=== PATIENT | male | born 1970 | race Caucasian/White ===

== ENCOUNTER 2017-12-31 13:34 | Inpatient (IN) ==
[2017-12-31] MEDS ORDERED: Levofloxacin 500 MG/100 ML 500 MG/100 ML BAG IVPB ONE (14:00)
[2017-12-31] MEDS ORDERED: Ringers Solution, Lactated 1,000 ML IVC SCH (14:00)
--- NOTE | 2017-12-31 14:00 | Anesthesia Evaluation PreOp ---
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 History: Other (BIPOLAR) Other Medical History: Thyroid, Other (MORBID OBESITY) Anesthesia History: No Prior Anesthetic Complications, Past Anesthesia Alcohol Use: occasionally Drug use: none Medications and Allergies Levothyroxine [Synthroid] 25 mcg PO 0630 03/11/16 [History] [place] Carbonate 300 mg PO DAILY 03/11/16 [History] Losartan Potassium [Cozaar] 50 mg PO DAILY 03/11/16 [History] Metoprolol [Lopressor] 25 mg PO DAILY 03/11/16 [History] risperiDONE [Risperidone] 1 mg PO HS 03/11/16 [History] HYDROcodone/Acet 5/325 mg [[place] 5-325 mg] 1 tab PO Q4H PRN 3 Days #14 tab 12/28 [Rx] cloNIDine HCl [Clonidine HCl] 0.5 mg PO DAILY 12/28/17 [History] Aripiprazole [Abilify] 30 mg PO DAILY 12/31/17 [History] Aspirin 325 mg PO DAILY 12/31/17 [History] Oxycodone HCl/Acetaminophen [Percocet 5-325 mg Tablet] 1 each PO Q6H PRN [History] 3 Allergy/AdvReac Type Severity Reaction Status Date / Time Beef Containing Products Allergy Swelling Verified 12/28/17 20:22 of Lip/Tongue/Throat Penicillins [PCN] Allergy Dizziness Verified 03/11/16 12:00 - Meds/Allergy Pre-op Review Medications Reviewed: Yes Allergies Reviewed: Yes Beta Blockers on Current Med List: Yes Anesthesia Exam O2 Sat Height 1.83 m Weight 176.901 kg BMI 53 Vital Signs Temp Pulse Resp BP Pulse Ox 100.7 F 112 18 101/63 93 12/31/17 14:18 12/31/17 13:59 12/31/17 13:59 12/31/17 13:59 12/31/17 13:59 NPO (# of Hours): 8 - HEENT Mallampati: II Teeth: Poor dentition (MUTIPLE CARIES, BROKEN #8) Oral Opening: Greater than 3 - Cardiac Rhythm: Regular - Pulmonary Breath Sounds: bilateral Clear Respiratory Effort: Symmetrical Anesthesia Assess/Plan ASA Score: 3 Modified [place] Scale for Level of Consciousness: Cooperative, oriented, and tranquil Anesthetic Plan: General Monitoring Plan: Standard Monitors Anes Supervising Prov Stmt: Penumbra LIST NOT UPDATED THIS VISIT PATIENT'S CHART AND CURRENT MEDICATIONS REVIEWED The patient reports a fever of 102 last night. He denies any cough, productive sputum, or any other skin infections. He does report that his urine is dark, padmini colored. He is febrile and tachycardic today. This is probably UTI with sepsis, and the patient might have to be admitted post operatively for iv antibiotics. Patient informed and consented. Risks, benefits, and alternatives discussed. Patient wishes to proceed.
[2017-12-31 15:50] LABS: Basophils % 0.2 %; Hematocrit 41.9 % (37.5-50.1); Hemoglobin 14.6 g/dL (12.9-16.9); Immature Granulocytes % 0.5 % (0-4); Lymphocytes # 0.3 K/mcL (0.6-4.6); Lymphocytes % 2.8 %; Mean Corpuscular HGB Conc 34.8 g/dL (31.6-35.5); Mean Corpuscular Volume 86.2 fL (83.0-100.0); Mean Platelet Volume 10.3 fL (9.4-12.4); Monocytes # 0.9 K/mcL (0.0-1.3); Neutrophils # 9.7 K/mcL (1.6-8.9); Platelet Count 173 K/mcL (140-400); Red Blood Count 4.86 M/mcL (4.19-5.50); Red Cell Distribution Width 14.1 % (11.5-14.5); Segmented Neutrophils % 88.5 %
--- NOTE | 2017-12-31 15:53 | History & Physical Report ---
Date of Encounter: 12/31/17 Time of Encounter: 15:52 24 Hour HP Update - Instructions Instructions: If the History and Physical is less than 30 days old and was completed prior to A.M. admission and or procedure and has NOT been updated on calendar day of procedure please complete this update prior to performing procedure. - Update Patient reports changes in Medical Condition: Yes Changes in examination, assessment, or condition: Yes Changes in Medication: No Preop tests/diagnostics Reviewed: Yes Surgery Remains Indicated: Yes Consent for Planned Operative Procedure(s) Verified: Yes Additions to current History and Physical: Patient has a fever. We will admit afterwards and only place a left stent. - Pre-Operative Checklist Preoperative Checklist Indicated: Yes Prophylactic Antibiotic Ordered: Yes Home Medications Include Beta Yocasta: Yes Is VTE Prophylaxis Indicated?: Yes
[2017-12-31] MEDS ORDERED: Ondansetron 4 MG/2 ML VIAL ONE (15:59)
[2017-12-31] MEDS ORDERED: Dexamethasone 4 MG/ML VIAL ONE (15:59)
[2017-12-31] MEDS ORDERED: *HR* FentaNYL (PF) 100 MCG/2 ML VIAL ONE (15:59)
[2017-12-31] MEDS ORDERED: *HR* Propofol 200 MG/20 ML VIAL IVP ONE (15:59)
[2017-12-31] MEDS ORDERED: Lidocaine -MPF 2% 2 ML VIAL ONE (15:59)
[2017-12-31] MEDS ORDERED: Isovue-300 50 ML VIAL IVP ONE (16:36)
[2017-12-31] MEDS ORDERED: *HR* Meperidine 25 MG/ML SYRINGE IVP PRN (16:52)
[2017-12-31] MEDS ORDERED: *HR* OxyCODONE Immed Rel 5 MG TABLET PO PRN (16:52)
[2017-12-31] MEDS ORDERED: *HR* HYDROmorphone (PF) 1 MG/ML SYRINGE IVP PRN (16:52)
[2017-12-31] MEDS ORDERED: *HR* Promethazine 25 MG/ML VIAL IVP PRN (16:52)
--- NOTE | 2017-12-31 17:01 | Operative Note ---
Date of procedure: 12/31/17 Pre-op diagnosis: Left ureteral stone Post-op diagnosis: same Procedure: Cystoscopy, left ureteral stent placement. Implants: 6-[place] Citizen by 26 cm double-J stent. Complications: None Anesthesia: YOAN Surgeon: Behzad Feng Was there an studio assistant present: No Estimated blood loss (cc): 1 Specimen: left renal aspirate for culture Condition: stable Disposition: PACU Procedure in Detail: Indications: Mr. Moreno is a 47-year-old male who has a history of nephrolithiasis. He had a CT which showed a left proximal ureteral stone. He has concern for fever and possible infection. He elected to undergo a cystoscopy and left ureteral stent placement. He was aware of the risks of the procedure including but not limited to bleeding, infection, injury to other structures, need for further procedures, stent irritation, need for nephrostomy tube, need for open repair, risks otherwise unforeseen, and the risk of anesthesia. He is willing to proceed. Procedure in Detail: After informed consent was obtained the patient was brought back to the operating room and placed in supine position. A time out was performed. General anesthesia was administered and an LMA was placed. He was then placed in the lithotomy position. He was prepped and draped in the usual sterile fashion. Cystoscopy was performed. The anterior urethra was normal. There was no evidence of bladder tumors. The ureteral orifices were in the normal orthotopic position. There was no duplication of the ureteral orifices. The Sensor wire was placed in the left ureteral orifice. The wire was then brought up into the kidney under fluoroscopic guidance. An open-ended catheter was placed over the wire into the kidney. An aspirate of urine was obtained from the kidney. It did not look grossly purulent. The wire was replaced. The open-ended catheter was removed. A 6 [place] Citizen by 26cm JJ stent was then placed. The dangle strings were removed. A Man catheter was then placed. The patient was then awakened from general anesthesia and brought to recovery room in good condition. All sponge, needle, and instrument counts were correct.
[2017-12-31] MEDS ORDERED: *HR* Dextrose 50 % in Water (Syg) 50 ML SYRINGE IVP PRN (18:16)
[2017-12-31] MEDS ORDERED: OXYCODONE Oral CONC 10 MG/0.5 ML ORAL.SYG SL PRN (18:16)
[2017-12-31] MEDS ORDERED: Naloxone 0.4 MG/ML INJ IVP PRN (18:16)
[2017-12-31] MEDS ORDERED: Dextrose Gel 15 GM/37.5 ML TUBE PO PRN ×2 (18:16)
[2017-12-31] MEDS ORDERED: D5% in Water 1,000 ML IVC PRN (18:16)
[2017-12-31] MEDS: risperiDONE 1 MG TABLET PO SCH (20:54)
[2018-01-01] MEDS: 0.9 % Sodium Chloride 1,000 ML IVC SCH ×4 (01:30→22:25)
[2018-01-01 04:25] LABS: Basophils % 0.1 %; Hematocrit 40.1 % (37.5-50.1); Hemoglobin 13.6 g/dL (12.9-16.9); Immature Granulocytes % 0.4 % (0-4); Lymphocytes # 0.4 K/mcL (0.6-4.6); Lymphocytes % 4.2 %; Mean Corpuscular HGB Conc 33.9 g/dL (31.6-35.5); Mean Corpuscular Hemoglobin 28.9 pg (28.0-33.3); Mean Corpuscular Volume 85.3 fL (83.0-100.0); Monocytes # 0.4 K/mcL (0.0-1.3); Monocytes % 5.1 %; Neutrophils # 7.5 K/mcL (1.6-8.9); Platelet Count 169 K/mcL (140-400); Red Cell Distribution Width 14.2 % (11.5-14.5); Segmented Neutrophils % 90.2 %
[2018-01-01 04:42] LABS: Calcium 9.3 mg/dL (8.6-10.3); Potassium 4.5 mEq/L (3.5-5.1)
[2018-01-01] MEDS: Levothyroxine 25 MCG TABLET PO SCH (05:11)
[2018-01-01] MEDS: Levofloxacin 500 MG/100 ML 500 MG/100 ML BAG IVPB SCH (08:55)
[2018-01-01] MEDS: Aspirin 325 MG TABLET PO SCH (08:55)
[2018-01-01] MEDS: ARIPiprazole 10 MG TABLET PO SCH (08:55)
[2018-01-01] MEDS: Lithium Carbonate 300 MG CAPSULE PO SCH (08:55)
--- NOTE | 2018-01-01 12:40 | Urology Progress Note ---
Date of Encounter: 01/01/18 Time of Encounter: 12:38 - Assessment and Plan (1) Ureterolithiasis Current Visit: No Status: Acute Assessment and plan: Patient is a 47-year-old male who presents the history of a proximal left ureteral stone and concern for urinary tract infection. Patient is one day status post cystoscopy, left ureteral stent placement and doing well. Vital signs are stable and afebrile. White blood cell count is reassuring. Patient' s nurse requested sliding scale order for insulin in order was given. Patient is aware that he will require an additional procedure for stone extraction. Patient will present as an outpatient in our office in order to schedule left stone extraction. Progress Note Subjective: no new complaints, feels better Narrative: POD #1. Patient seen and examined sitting upright in bed in no apparent distress. Patient tolerating normal diet. Voiding without difficulty. Pain is well-controlled. Patient denies fever, chills, flank pain, diaphoresis, gross hematuria. Objective Initial Vital Signs Temp Pulse Resp BP Pulse Ox 99.6 F 112 18 101/63 93 12/31/17 13:59 12/31/17 13:59 12/31/17 13:59 12/31/17 13:59 12/31/17 13:59 - General physical appearance Present: well developed, no distress, no pain, obese - Respiratory Present: normal expansion, normal respiratory effort - Abdomen Present: soft, non tender - Integumentary Present: no rash, no abnormal pigmentation - Musculoskeletal Present: normal posture - Psychiatric Present: oriented to time, oriented to person, oriented to place, speech is normal, memory intact - Labs 01/01/18 04:07 01/01/18 04:07 Diabetes panel 01/01/18 Range/Units 04:07 Sodium 136 (136-145) mEq/L Potassium 4.5 (3.5-5.1) mEq/L Chloride 104 (98-107) mEq/L Carbon Dioxide 24 (23-29) mEq/L BUN 22 H (6-20) mg/dL Creatinine 1.67 H (0.70-1.30) mg/dL Glucose 257 H (70-105) mg/dL Calcium 9.3 (8.6-10.3) mg/dL Calcium panel 01/01/18 Range/Units 04:07 Calcium 9.3 (8.6-10.3) mg/dL Pituitary panel 01/01/18 Range/Units 04:07 Sodium 136 (136-145) mEq/L Potassium 4.5 (3.5-5.1) mEq/L Chloride 104 (98-107) mEq/L Carbon Dioxide 24 (23-29) mEq/L BUN 22 H (6-20) mg/dL Creatinine 1.67 H (0.70-1.30) mg/dL Glucose 257 H (70-105) mg/dL Calcium 9.3 (8.6-10.3) mg/dL Adrenal panel 01/01/18 Range/Units 04:07 Sodium 136 (136-145) mEq/L Potassium 4.5 (3.5-5.1) mEq/L Chloride 104 (98-107) mEq/L Carbon Dioxide 24 (23-29) mEq/L BUN 22 H (6-20) mg/dL Creatinine 1.67 H (0.70-1.30) mg/dL Glucose 257 H (70-105) mg/dL Calcium 9.3 (8.6-10.3) mg/dL Consult Discharge Plan - Plan Referrals: Maricruz Prieto CNP [Primary Care Provider] - Behzad Feng MD [Partnered Physician] -
[2018-01-01] MEDS: Insulin LISPRO 300 UNITS/3 ML VIAL SQ SCH ×3 (12:47→21:47)
[2018-01-01] MEDS: Ondansetron 4 MG/2 ML VIAL IVP PRN (18:05)
[2018-01-01] MEDS: *HR* OxyCODONE Immed Rel 5 MG TABLET PO PRN (18:11)
[2018-01-01] MEDS: Acetaminophen 325 MG TABLET PO PRN (20:21)
[2018-01-01] MEDS ORDERED: Ibuprofen 600 MG TABLET PO ONE (21:14)
[2018-01-01] MEDS ORDERED: 0.9 % Sodium Chloride 1,000 ML IVC ONE (21:15)
[2018-01-01] MEDS: *HR* Heparin 5,000 UNIT/ML VIAL SQ SCH (21:29)
[2018-01-01] MEDS: risperiDONE 1 MG TABLET PO SCH (21:48)
[2018-01-02] MEDS: *HR* Heparin 5,000 UNIT/ML VIAL SQ SCH ×2 (05:49→19:00)
[2018-01-02] MEDS: 0.9 % Sodium Chloride 1,000 ML IVC SCH ×2 (05:49→14:53)
[2018-01-02] MEDS: Levothyroxine 25 MCG TABLET PO SCH (08:05)
[2018-01-02] MEDS: ARIPiprazole 10 MG TABLET PO SCH (08:06)
[2018-01-02] MEDS: Lithium Carbonate 300 MG CAPSULE PO SCH (08:07)
[2018-01-02] MEDS: Aspirin 325 MG TABLET PO SCH (08:09)
[2018-01-02] MEDS: Acetaminophen 325 MG TABLET PO PRN ×3 (08:09→20:07)
[2018-01-02] MEDS: Ondansetron 4 MG/2 ML VIAL IVP PRN ×2 (08:10→15:47)
[2018-01-02] MEDS: Insulin LISPRO 300 UNITS/3 ML VIAL SQ SCH ×4 (08:11→21:38)
[2018-01-02] MEDS: Levofloxacin 500 MG/100 ML 500 MG/100 ML BAG IVPB SCH (08:12)
--- NOTE | 2018-01-02 09:46 | Urology Progress Note ---
Date of Encounter: 01/02/18 Time of Encounter: 09:44 - Assessment and Plan (1) UTI (urinary tract infection) Current Visit: Yes Status: Acute Assessment and plan: 47-year-old man with urinary tract infection and left ureteral stone. He is postop day #2 status post cystoscopy and left ureteral stent placement. I called the lab today. We will set up urine culture on him. He does have an allergy to penicillins. He is currently on levofloxacin. We will repeat labs today. Continue inpatient stay. Awaiting the results of his urine culture. Qualifiers: Urinary tract infection type: acute pyelonephritis Qualified Code(s): N10 - Acute pyelonephritis (2) Ureterolithiasis Current Visit: No Status: Acute Assessment and plan: He has a history of uric acid stones. I placed a left ureteral stent. Continue IV antibiotics for now. Awaiting urine culture results. I discussed with Dr. Velez. He will need to consider ureteroscopic stone extraction at a later date. Progress Note Narrative: 47-year-old man status post cystoscopy and left ureteral stent placement, postoperative day #2. He had a fever yesterday. This responded with IV fluids. He is still not feeling well. I called the lab today. His urine culture was not set up at the time of the surgery. They do have the sample and will perform a Gram stain and culture on it today. He is tolerating diet. He says he is voiding well. Objective Initial Vital Signs Temp Pulse Resp BP Pulse Ox 99.6 F 112 18 101/63 93 12/31/17 13:59 12/31/17 13:59 12/31/17 13:59 12/31/17 13:59 12/31/17 13:59 - General physical appearance Present: well developed, well nourished, no distress - Respiratory Absent: normal respiratory effort - Abdomen Present: soft - Labs 01/01/18 04:07 01/01/18 04:07 Consult Discharge Plan - Plan Referrals: Maricruz Prieto CNP [Primary Care Provider] - Behzad Feng MD [Partnered Physician] -
[2018-01-02] MEDS ORDERED: Ibuprofen 600 MG TABLET PO PRN (10:06)
[2018-01-02 10:22] LABS: Hemoglobin 13.2 g/dL (12.9-16.9); Mean Corpuscular HGB Conc 34.7 g/dL (31.6-35.5); Mean Corpuscular Volume 86.4 fL (83.0-100.0); Mean Platelet Volume 11.3 fL (9.4-12.4); Platelet Count 165 K/mcL (140-400); Red Cell Distribution Width 14.4 % (11.5-14.5)
[2018-01-02 10:40] LABS: BUN/Creatinine Ratio 15 (6-26); Blood Urea Nitrogen 19 mg/dL (6-20); Calcium 8.3 mg/dL (8.6-10.3); Carbon Dioxide 23 mEq/L (23-29); Chloride 104 mEq/L (98-107); Glucose 197 mg/dL (70-105); Osmolality,Calculated 288 (280-300); Potassium 3.9 mEq/L (3.5-5.1); Sodium 135 mEq/L (136-145); eGFR For Non-African Americans > 60 (> 60)
[2018-01-02] MEDS: *HR* OxyCODONE Immed Rel 5 MG TABLET PO PRN (15:46)
[2018-01-02] MEDS: risperiDONE 1 MG TABLET PO SCH (20:07)
[2018-01-03] MEDS: 0.9 % Sodium Chloride 1,000 ML IVC SCH ×3 (04:17→17:24)
[2018-01-03] MEDS: *HR* Heparin 5,000 UNIT/ML VIAL SQ SCH ×2 (06:16→17:05)
[2018-01-03] MEDS: Levothyroxine 25 MCG TABLET PO SCH (06:20)
[2018-01-03] MEDS: Levofloxacin 500 MG/100 ML 500 MG/100 ML BAG IVPB SCH (07:54)
[2018-01-03] MEDS: ARIPiprazole 10 MG TABLET PO SCH (07:56)
[2018-01-03] MEDS: Aspirin 325 MG TABLET PO SCH (07:56)
[2018-01-03] MEDS: Lithium Carbonate 300 MG CAPSULE PO SCH (07:56)
[2018-01-03] MEDS: Insulin LISPRO 300 UNITS/3 ML VIAL SQ SCH ×4 (07:58→20:12)
--- NOTE | 2018-01-03 09:42 | Urology Progress Note ---
Date of Encounter: 01/03/18 Time of Encounter: 09:40 - Assessment and Plan (1) UTI (urinary tract infection) Current Visit: Yes Status: Acute Assessment and plan: 47-year-old man status post left ureteral stent placement with a UTI. I have requested sensitivities on the group B strep given his penicillin allergy. Continue levofloxacin and vancomycin for now. Continue inpatient stay. Maximum temperature was 100.5 degrees within the last 24 hours. Qualifiers: Urinary tract infection type: acute pyelonephritis Qualified Code(s): N10 - Acute pyelonephritis (2) Ureterolithiasis Current Visit: No Status: Acute Progress Note Narrative: 47-year-old man status post cystoscopy and left ureteral stent placement, postoperative day #3. We started vancomycin yesterday. He feels that this has improved his fevers. Urine culture is growing out Streptococcus. He does have a significant penicillin allergy. I will request sensitivities on the Streptococcus. Objective Initial Vital Signs Temp Pulse Resp BP Pulse Ox 99.6 F 112 18 101/63 93 12/31/17 13:59 12/31/17 13:59 12/31/17 13:59 12/31/17 13:59 12/31/17 13:59 - General physical appearance Present: well developed, well nourished, no distress - Respiratory Present: normal respiratory effort - Labs 01/02/18 10:12 01/02/18 10:12 Diabetes panel 01/02/18 Range/Units 10:12 Sodium 135 L (136-145) mEq/L Potassium 3.9 (3.5-5.1) mEq/L Chloride 104 (98-107) mEq/L Carbon Dioxide 23 (23-29) mEq/L BUN 19 (6-20) mg/dL Creatinine 1.27 (0.70-1.30) mg/dL Glucose 197 H (70-105) mg/dL Calcium 8.3 L (8.6-10.3) mg/dL Calcium panel 01/02/18 Range/Units 10:12 Calcium 8.3 L (8.6-10.3) mg/dL Pituitary panel 01/02/18 Range/Units 10:12 Sodium 135 L (136-145) mEq/L Potassium 3.9 (3.5-5.1) mEq/L Chloride 104 (98-107) mEq/L Carbon Dioxide 23 (23-29) mEq/L BUN 19 (6-20) mg/dL Creatinine 1.27 (0.70-1.30) mg/dL Glucose 197 H (70-105) mg/dL Calcium 8.3 L (8.6-10.3) mg/dL Adrenal panel 01/02/18 Range/Units 10:12 Sodium 135 L (136-145) mEq/L Potassium 3.9 (3.5-5.1) mEq/L Chloride 104 (98-107) mEq/L Carbon Dioxide 23 (23-29) mEq/L BUN 19 (6-20) mg/dL Creatinine 1.27 (0.70-1.30) mg/dL Glucose 197 H (70-105) mg/dL Calcium 8.3 L (8.6-10.3) mg/dL Consult Discharge Plan - Plan Referrals: Maricruz Prieto CNP [Primary Care Provider] - Behzad Feng MD [Partnered Physician] -
[2018-01-03 12:29] LABS: Vancomycin,Trough 4 mcg/mL (5-10)
[2018-01-03] MEDS ORDERED: Vancomycin 1 EACH in 0.9 % Sodium Chloride 250 ML IVPB SCH (13:00)
[2018-01-03 13:10] LABS: BUN/Creatinine Ratio 13 (6-26); Blood Urea Nitrogen 14 mg/dL (6-20); eGFR For Non-African Americans > 60 (> 60)
[2018-01-03] MEDS ORDERED: Aminoglycoside Consult 1 EACH MC ONE (14:03)
[2018-01-03] MEDS: risperiDONE 1 MG TABLET PO SCH (20:13)
[2018-01-04] MEDS: 0.9 % Sodium Chloride 1,000 ML IVC SCH (02:14)
[2018-01-04] MEDS: *HR* Heparin 5,000 UNIT/ML VIAL SQ SCH (05:40)
[2018-01-04] MEDS: Levothyroxine 25 MCG TABLET PO SCH (07:01)
[2018-01-04 07:43] VITALS: BP 146/84
--- NOTE | 2018-01-04 08:07 | Urology Progress Note ---
Date of Encounter: 01/04/18 Time of Encounter: 08:04 - Assessment and Plan (1) Ureterolithiasis Current Visit: No Status: Acute Assessment and plan: Patient is a 47 year old male 4 days status post cystoscopy, left ureteral stent placement. Vital signs are stable and afebrile. Discussed outpatient antibiotic therapy and urology follow up. Will send home with Bactrim DS twice daily. Progress Note Subjective: no new complaints, feels better, tolerating a regular diet, afebrile Narrative: POD #4. Patient seen and examined sitting upright in chair in no apparent distress. Tolerating normal diet. Voiding without difficulty. Denies fever, chills, nausea, vomiting, flank pain. Objective Initial Vital Signs Temp Pulse Resp BP Pulse Ox 99.6 F 112 18 101/63 93 12/31/17 13:59 12/31/17 13:59 12/31/17 13:59 12/31/17 13:59 12/31/17 13:59 - General physical appearance Present: well developed, no distress, no pain, obese - Respiratory Present: normal expansion, normal respiratory effort - Abdomen Present: soft, non tender - Integumentary Present: no rash, no abnormal pigmentation - Musculoskeletal Present: normal posture - Psychiatric Present: oriented to time, oriented to person, oriented to place, speech is normal, memory intact - Labs 01/02/18 10:12 01/03/18 12:01 Diabetes panel 01/03/18 Range/Units 12:01 BUN 14 (6-20) mg/dL Creatinine 1.05 (0.70-1.30) mg/dL Pituitary panel 01/03/18 Range/Units 12:01 BUN 14 (6-20) mg/dL Creatinine 1.05 (0.70-1.30) mg/dL Adrenal panel 01/03/18 Range/Units 12:01 BUN 14 (6-20) mg/dL Creatinine 1.05 (0.70-1.30) mg/dL Consult Discharge Plan - Plan Referrals: Maricruz Prieto CNP [Primary Care Provider] - Bhezad Feng MD [Partnered Physician] -
[2018-01-04] MEDS: ARIPiprazole 10 MG TABLET PO SCH (08:40)
[2018-01-04] MEDS: Lithium Carbonate 300 MG CAPSULE PO SCH (08:41)
[2018-01-04] MEDS: Insulin LISPRO 300 UNITS/3 ML VIAL SQ SCH ×2 (08:41→12:02)
[2018-01-04] MEDS: Aspirin 325 MG TABLET PO SCH (08:41)
[2018-01-04] MEDS ORDERED: levoFLOXacin 500 MG TABLET PO SCH (09:00)
--- NOTE | 2018-01-04 09:24 | Discharge Summary ---
Date of Encounter: 01/04/18 Time of Encounter: 09:25 - Discharge Diagnosis (1) Ureterolithiasis Priority: Primary Status: Acute - Hospital Course Hospital course: Mr. Moreno is a 47 year old male history who presented with a left proximal ureteral stone. Patient was concerning for urinary tract infection due to recurrent fever. On 12/31/2017, the patient was taken to the operating room where he underwent a cystoscopy and left ureteral stent placement. There were no operative complications, and the patient tolerated the procedure well. His postoperative course was remarkable for febrile illness as his MAXIMUM TEMPERATURE was 102.8 on postoperative day 1. Urine culture was positive for group B strep. Patient was placed on IV Levaquin during his hospital stay. Due to the patient's allergy to penicillin, he was placed on oral Bactrim DS twice daily. On postoperative day 4, the patient's vital signs have remained stable and afebrile for greater than 24 hours, and he was dismissed in satisfactory condition. Postoperative activities, restrictions and follow-up were all discussed with the patient. The patient reports he is scheduled for an oral surgery on 01/07/2018 at [facility]. He was instructed to notify his oral surgeon of this recent admission and infection in order to reschedule as needed. Time spent discussing smoking cessation with patient: 3 to 10 minutes - Time Spent with Patient Total time spent providing and/or coordinating discharge services: Less than 30 minutes Procedures and tests throughout hospitalization: Cystoscopy, left ureteral stent placement Labs on day of discharge: Labs from last 24 hours 01/03/18 01/03/18 12:01 11:27 BUN 14 Creatinine 1.05 Est GFR ( Amer) > 60 Est GFR (Non-Af Amer) > 60 BUN/Creatinine Ratio 13 POC Glucose 148 H Vancomycin Trough 4 L - Impressions ITS Impressions Fluoroscopy 12/31/17 00:00 IMPRESSION: Intraprocedural fluoroscopic spot images as above. See separate procedure report for more information. D/ / Oscar James MD / Oscar James MD Interpreting Provider: Oscar James MD X-Ray 12/31/17 00:00 IMPRESSION: Intraprocedural fluoroscopic spot images as above. See separate procedure report for more information. D/ / Oscar James MD / Oscar James MD Interpreting Provider: Oscar James MD - Discharge Medications Prescriptions: HYDROcodone/Acet 5/325 mg [[place] 5-325 mg] 1 tab PO Q6H PRN 3 Days #10 tab PRN Reason: Moderate Pain Sulfamethoxazole/Trimeth DS [Bactrim DS] 1 each PO BID #20 tablet Home Medications: Levothyroxine [Synthroid] 25 mcg PO 0630 03/11/16 [History] [place] Carbonate 300 mg PO DAILY 03/11/16 [History] Losartan Potassium [Cozaar] 50 mg PO DAILY 03/11/16 [History] Metoprolol [Lopressor] 25 mg PO DAILY 03/11/16 [History] risperiDONE [Risperidone] 1 mg PO HS 03/11/16 [History] HYDROcodone/Acet 5/325 mg [[place] 5-325 mg] 1 tab PO Q4H PRN 3 Days #14 tab 12/28 [Rx] Aripiprazole [Abilify] 30 mg PO DAILY 12/31/17 [History] Aspirin 325 mg PO DAILY 12/31/17 [History] Potassium Citrate [Urocit-K] 2 tab PO BID 01/01/18 [History] cloNIDine HCl [CloNIDine HCl] 0.1 mg PO BID 01/01/18 [History] HYDROcodone/Acet 5/325 mg [[place] 5-325 mg] 1 tab PO Q6H PRN 3 Days #10 tab 01/04 [Rx] Sulfamethoxazole/Trimeth DS [Bactrim DS] 1 each PO BID #20 tablet 01/04/18 [Rx] Allergies/Adverse Reactions: 3 Allergy/AdvReac Type Severity Reaction Status Date / Time Beef Containing Products Allergy Swelling Verified 12/28/17 20:22 of Lip/Tongue/Throat Penicillins [PCN] Allergy Dizziness Verified 03/11/16 12:00 Date of admission: 12/31/17 18:14 Primary care physician: Maricruz Prieto CNP Discharging clinician: Trinity Wall Anticipated date of discharge: 01/04/18 Exam Initial Vital Signs Temp Pulse Resp BP Pulse Ox 99.6 F 112 18 101/63 93 12/31/17 13:59 12/31/17 13:59 12/31/17 13:59 12/31/17 13:59 12/31/17 13:59 - General physical appearance Present: well developed, no distress, no pain - Eyes Present: PERRL, normal ocular movement - ENT Present: normal nares, no hearing loss, no congestion - Neck Present: no masses, trachea midline - Respiratory Present: normal respiratory effort - Cardiovascular Cardiovascular exam IM: RRR - Abdomen Abdomen: Present: soft, non tender - Integumentary Present: no rash, no abnormal pigmentation - Neurologic Present: normal coordination - Musculoskeletal Present: other (normal posture ) - Patient Status Disposition: Home, Self-Care Condition: Good Functional capacity at discharge: independent ambulation Overall status at discharge: patient is progressing back to baseline - Discharge Instructions Follow Up With: Maricruz Prieto CNP [Primary Care Provider] - Reece Velez MD [Partnered Physician] - Additional Instructions: Ok to shower. Ok to drive as long as you are no longer taking pain medication. May expect blood in the urine and irritating voiding symptoms. Call if fever greater than 101 degrees. May progress back to normal activity. Please follow-up with Dr. Velez as discussed to schedule stent removal and stone extraction. - Diet and Activity Activity: increase activity as tolerated Diet: advance to your usual diet
== END 2018-01-04 14:04 | disposition home or self-care (01) | DRG 465 ==
LOC: SAMDAY 13:34 → 3ANU 18:13
PROVIDERS: ADMIT Urology; ATTEND Urology

== ENCOUNTER 2018-01-12 20:50 | Inpatient (IN) ==
[2018-01-12] MEDS ORDERED: Naloxone 0.4 MG/ML INJ IVP PRN (22:14)
[2018-01-12] MEDS: 0.9 % Sodium Chloride 1,000 ML IVC SCH (22:50)
[2018-01-12 23:19] LABS: Basophils % 0.3 %; Eosinophils # 0.1 K/mcL (0.0-0.6); Eosinophils % 0.5 %; Hematocrit 38.7 % (37.5-50.1); Hemoglobin 13.4 g/dL (12.9-16.9); Immature Granulocytes % 0.8 % (0-4); Lymphocytes # 0.2 K/mcL (0.6-4.6); Lymphocytes % 2.5 %; Mean Corpuscular HGB Conc 34.6 g/dL (31.6-35.5); Mean Corpuscular Hemoglobin 29.1 pg (28.0-33.3); Mean Corpuscular Volume 83.9 fL (83.0-100.0); Mean Platelet Volume 10.4 fL (9.4-12.4); Monocytes # 0.5 K/mcL (0.0-1.3); Monocytes % 5.8 %; Neutrophils # 8.4 K/mcL (1.6-8.9); Platelet Count 180 K/mcL (140-400); Red Blood Count 4.61 M/mcL (4.19-5.50); Red Cell Distribution Width 13.9 % (11.5-14.5); Segmented Neutrophils % 90.1 %
[2018-01-12 23:38] LABS: Alanine Aminotransferase 53 Units/L (7-52); Albumin 3.5 g/dL (3.5-5.7); Albumin/Globulin Ratio 1.2 (1.1-2.2); Alkaline Phosphatase 79 Units/L (34-104); Aspartate Amino Transferase 42 Units/L (13-39); BUN/Creatinine Ratio 12 (6-26); Bilirubin,Total 1.4 mg/dL (0.3-1.0); Blood Urea Nitrogen 18 mg/dL (6-20); Calcium 8.5 mg/dL (8.6-10.3); Carbon Dioxide 19 mEq/L (23-29); Chloride 103 mEq/L (98-107); Globulin 2.9 g/dL (2.4-3.5); Glucose 171 mg/dL (70-105); Osmolality,Calculated 282 (280-300); Sodium 133 mEq/L (136-145); Total Protein 6.4 g/dL (6.4-8.9); eGFR For Non-African Americans 50 (> 60)
--- NOTE | 2018-01-12 23:44 | Internal Med History&Physical ---
Date of Encounter: 01/13/18 Time of Encounter: 23:41 Internal Medicine - H&P: HPI Chief complaint: Fever/Flank Pain History of present illness: Mr. Moreno is a 47 year old male with past medical history of hypertension, depression, hypothyroidism, and uric acid nephrolithiasis who had recently undergone cystoscopy with left ureteral stent placement on 12/31/2017 in the setting of a previously identified 8 mm left ureteral stone on CT scan on 2017. His postoperative course was remarkable for febrile illness with a temperature of 102.8. Urine culture were positive for group B strep. Due to the patient's allergy to penicillin, he was placed on oral Bactrim DS twice daily and was discharged on 01/04/18. Patient reports the plan is to follow-up with urology for possible second procedure on January 19. Patient states he was doing fine until about last weekend when he began having left flank pain associated with nausea and vomiting. He states that Thursday was the last time he was able to eat anything. He also reports subjective fever and chills and was found to have a temperature of 101.2 documented at [place] when he came in this evening. He was also found to be tachycardic with a heart rate in the 130s to 140s and his laboratory workup was significant for, hyponatremia with a sodium of 128, and mild BIRD (1.69). Lactic acid was normal. CT scan was not obtained as their scanner was down. Patient was subsequently to transferred to [place] after aggressive fluid recent port having received 4 L of normal saline. His tachycardia did improve. Patient was started on levofloxacin based on previous sensitivities. A trial of vancomycin was started as well but patient developed redness at the site of infusion. Past Med Surg Social Fam HX - Past Medical History Medical history: hypertension, kidney stones, thyroid disease, other Additional medical history: bipolar, anxiety depression Psychiatric history: anxiety, bipolar, depression - Past Surgical History Additional surgical history: PC&L, LITHOTRIPSY. renal stent - Social History Smoking Status: Former smoker Smokeless Tobacco Status: No Alcohol use: rarely Drug use: none Internal Medicine - H&P: Meds Levothyroxine [Synthroid] 25 mcg PO 0630 03/11/16 [History] [place] Carbonate 300 mg PO DAILY 03/11/16 [History] Losartan Potassium [Cozaar] 50 mg PO DAILY 03/11/16 [History] Metoprolol [Lopressor] 25 mg PO DAILY 03/11/16 [History] risperiDONE [Risperidone] 1 mg PO HS 03/11/16 [History] Aripiprazole [Abilify] 30 mg PO DAILY 12/31/17 [History] Aspirin 325 mg PO DAILY 12/31/17 [History] Potassium Citrate [Urocit-K] 2 tab PO DAILY 01/01/18 [History] cloNIDine HCl [CloNIDine HCl] 0.1 mg PO DAILY 01/01/18 [History] Sulfamethoxazole/Trimeth DS [Bactrim DS] 1 each PO BID #20 tablet 01/04/18 [Rx] 3 Allergy/AdvReac Type Severity Reaction Status Date / Time Beef Containing Products Allergy Swelling Verified 12/28/17 20:22 of Lip/Tongue/Throat Penicillins [PCN] Allergy Dizziness Verified 03/11/16 12:00 All Systems PM: A 10-system review of systems was performed and is negative for pertinent findings except as documented above in the HPI. - Constitutional Constitutional: no chills, no fever(s), no night sweats - EENT Eyes: no change in vision, no discharge, no pain, no photophobia Ears: no ear discharge, no ear pain, no tinnitus Nose, mouth and throat: no dysphagia, no nasal discharge, no neck pain, no sore throat - Cardiovascular Cardiovascular ROS IM: no chest pain, no diaphoresis, no dyspnea, no lightheadedness, no palpitations, no syncope - Respiratory Respiratory: no cough, no dyspnea, no wheezing, no excessive phlegm production - Gastrointestinal Gastrointestinal: no abdominal pain, no diarrhea, no hematemesis, no hematochezia, no melena, no nausea, no vomiting - Musculoskeletal Musculoskeletal ROS IM: no numbness, no tingling - Integumentary Integumentary IM: no rash, no unusual bruising - Neurological Neurological ROS: no confusion, no convulsions, no focal weakness, no numbness, no tingling, no tremor(s) - Hematologic/Lymphatic Hematologic/Lymphatic: no easy bruising - Constitutional Exam: General: Alert and oriented 3, lying in bed in no acute distress though diaphoretic. Skin:Normal color, small pinpoint erythematous lesions on the lower extremities. HEENT:EOM, pupils equal, round and reactive. Cardiovascular:Normal S1 & S2, no rubs, murmurs or gallops. No JVD. Pulse regular. Lungs:Normal breath sounds, no wheezes or crackles. Abdomen:Soft, non-tender, no rigidity; no CVA tenderness. Extremities:No deformity, no edema or tenderness, no joint swelling or clubbing. Neurological:Normal cognition and motor skills. Pulses:Carotid and radial pulses normal +2. Rest of the physical exam is non contributory Internal Med - H&P Results - Labs CBC & Chem 7: 01/12/18 23:08 01/12/18 23:08 Labs: Short CBC 01/12/18 Range/Units 23:08 WBC 9.3 (4.3-11.1) K/mcL Hgb 13.4 (12.9-16.9) g/dL Hct 38.7 (37.5-50.1) % Plt Count 180 (140-400) K/mcL Neutrophils # 8.4 (1.6-8.9) K/mcL BMP 01/12/18 23:08 Sodium 133 L Potassium 4.0 Chloride 103 Carbon Dioxide 19 L BUN 18 Creatinine 1.51 H Glucose 171 H Calcium 8.5 L Liver Function 01/12/18 Range/Units 23:08 Total Bilirubin 1.4 H (0.3-1.0) mg/dL AST 42 H (13-39) Units/L ALT 53 H (7-52) Units/L Alkaline Phosphatase 79 (34-104) Units/L Albumin 3.5 (3.5-5.7) g/dL - Assessment and plan (1) Nephrolithiasis, uric acid Current Visit: Yes Status: Acute Assessment and plan: Recent history of nephrolithiasis status post left ureteral stent placement in the setting of previously identified 8mm stone. Continue with IV antibiotics with Levaquin. IV hydration. CT scan of the abdomen and pelvis Urology consult for the morning. Nothing by mouth after midnight (2) Sepsis Current Visit: No Status: Acute Assessment and plan: Possible sepsis in the setting of Fever, tachycardia and source of infection involving the urinary tract. Patient does not have a white count and no elevated lactic acid at this point. We will repeat basic lab work including lactic acid. Obtain CT of the abdomen and pelvis. Continue with IV Levaquin. Follow-up blood and urine cultures Urology consult for the morning Qualifiers: Qualified Code(s): A41.9 - Sepsis, unspecified organism (3) Acute hyponatremia Current Visit: No Status: Acute Assessment and plan: Acute hyponatremia with a sodium of 128. Patient received 4 L of normal saline at [place]. We will repeat chemistry and monitor. (4) Acute renal insufficiency Current Visit: No Status: Acute Assessment and plan: Acute kidney injury in the setting of nausea vomiting and poor by mouth intake. Patient is making urine. We will obtain CT of the abdomen to rule out worsening hydronephrosis. We will continue with aggressive fluid support. Repeat chemistry in the morning. (5) UTI (urinary tract infection) Current Visit: No Status: Acute Assessment and plan: We will repeat UA. Follow-up urine culture. Qualifiers: Urinary tract infection type: site unspecified Qualified Code(s): N39.0 - Urinary tract infection, site not specified; R31.9 - Hematuria, unspecified (6) Heartburn symptom Current Visit: Yes Status: Acute Assessment and plan: Patient reports symptoms of heartburn that is substernal described as a burning sensation in his chest. EKG was reviewed which was unremarkable for ST or T- wave changes. Patient has initial negative troponins. We will trend troponin for now. Continue telemetry. Start patient on IV Protonix daily. (7) History of constipation Current Visit: Yes Status: Acute Assessment and plan: History of constipation. We will start patient on prn Senna and MiraLAX - Time Spent With Patient Total time spent is greater than 50% in coordination of care (as documented) at patient's floor/unit and/or counseling patient:
[2018-01-13] MEDS: Pantoprazole 40 MG VIAL IVP SCH ×2 (00:26→05:40)
[2018-01-13] MEDS: *HR* Heparin 5,000 UNIT/ML VIAL SQ SCH ×4 (00:27→20:59)
[2018-01-13 01:41] LABS: Bilirubin,Urine Small (Negative); Blood,Urine Large (Negative); Clarity,Urine Cloudy (Clear); Color,Urine Dark Yellow (Yellow); Glucose,Urine (UA) Normal (Normal); Ketones,Urine Trace mg/dL (Negative); Leukocyte Esterase,Urine Small (Negative); Nitrite,Urine Negative (Negative); PH,Urine 5.5 pH Units (5.0-8.0); Protein,Urine 100 mg/dL (Neg-Trace); Specific Gravity,Urine 1.016 (1.010-1.025); Urobilinogen,Urine Normal (Normal)
[2018-01-13 01:42] LABS: Hyaline Casts,Urine Few per lpf (None-Few); RBC,Urine TNTC per hpf (0-3); Squamous Epithelial Cell,Urine Many per lpf (None-Few); WBC,Urine 15-30 per hpf (0-3)
[2018-01-13 02:02] LABS: Bacteria,Urine Many per hpf (None-Few); Mucus,Urine Few (Few)
[2018-01-13] MEDS: Levothyroxine 25 MCG TABLET PO SCH (05:40)
[2018-01-13] MEDS: 0.9 % Sodium Chloride 1,000 ML IVC SCH (05:41)
--- NOTE | 2018-01-13 08:10 | Urology - Consult Note ---
<Trinity Wall N - Last Filed: 01/13/18 08:07> Date of Encounter: 01/13/18 Time of Encounter: 07:55 - Assessment and Plan (1) Ureteral calculus, left Current Visit: Yes Status: Acute Assessment and plan: Patient is a 47-year-old male who presents with an 8 mm left proximal ureteral stone. Patient underwent left ureteral stent placement on 12/31/[address] Feng. Stone extraction was not performed at that time due to infection. Patient is tentatively scheduled for a stone extraction on 01/19/2018. At this time, we will continue IV fluid hydration and antibiotics, as we would not plan a stone extraction in the setting of an acute infection. (2) Sepsis Current Visit: Yes Status: Acute Assessment and plan: Patient is a 47-year-old male who presents with a history of an 8 mm left proximal ureteral stone and urinary tract infection. Vital signs are currently stable. Temperature is 100.0. Patient is still tachycardic at 127 but is improved from the 130s to 140s on admission. Plan to continue IV Levaquin and fluid resuscitation. Qualifiers: Qualified Code(s): A41.9 - Sepsis, unspecified organism Urology CN:HPI Consult date: 01/13/18 History of present illness: Patient is a 47-year-old male who presents a 4 day history of left flank pain, nausea and febrile illness. Patient has a known left proximal 8 mm ureteral stone and underwent left ureteral stent placement on 12/31/[address] Feng. At that time, patient was found to have group B strep urinary tract infection and fever of 102. The patient was given IV antibiotics, discharged with oral Bactrim, and was tentatively scheduled for stone extraction procedure on 01/19/2018. Approximately 4 days ago, the patient states left flank pain returned and was accompanied with nausea, decreased appetite, chills, diaphoresis and fever. The patient presented to [facility] emergency department and was subsequently transferred to [facility] ED for further evaluation. The patient underwent a repeat CT scan of abdomen and pelvis which confirmed prior findings of left proximal 8 mm ureteral stone. The patient still has the left ureteral stent in place. Based on prior sensitivity, the patient has been placed on IV Levaquin. Patient was unable to tolerate vancomycin due to redness at infusion site. Past Med Surg Social Fam HX - Past Medical History Medical history: hypertension, kidney stones, thyroid disease, other Additional medical history: bipolar, anxiety depression Psychiatric history: anxiety, bipolar, depression - Past Surgical History Additional surgical history: PC&L, LITHOTRIPSY. renal stent - Social History Smoking Status: Former smoker Smokeless Tobacco Status: No Alcohol use: rarely Drug use: none Medications and Allergies Levothyroxine [Synthroid] 25 mcg PO 0630 03/11/16 [History] [place] Carbonate 300 mg PO DAILY 03/11/16 [History] Losartan Potassium [Cozaar] 50 mg PO DAILY 03/11/16 [History] Metoprolol [Lopressor] 25 mg PO DAILY 03/11/16 [History] risperiDONE [Risperidone] 1 mg PO HS 03/11/16 [History] Aripiprazole [Abilify] 30 mg PO DAILY 12/31/17 [History] Aspirin 325 mg PO DAILY 12/31/17 [History] Potassium Citrate [Urocit-K] 2 tab PO BID 01/01/18 [History] cloNIDine HCl [CloNIDine HCl] 0.1 mg PO DAILY 01/01/18 [History] Sulfamethoxazole/Trimeth DS [Bactrim DS] 1 each PO BID #20 tablet 01/04/18 [Rx] 3 Allergy/AdvReac Type Severity Reaction Status Date / Time Beef Containing Products Allergy Swelling Verified 12/28/17 20:22 of Lip/Tongue/Throat Penicillins [PCN] Allergy Dizziness Verified 03/11/16 12:00 Review of Systems - Constitutional chills, fatigue, fever(s), malaise - EENT Nose, mouth and throat: headache(s), no dizziness, no sore throat, no throat swelling - Cardiovascular diaphoresis, no chest pain, no dyspnea - Respiratory no cough, no dyspnea - Gastrointestinal nausea, no abdominal pain, no change in bowel habits, no vomiting - Genitourinary flank pain (left), no difficulty urinating, no dysuria, no hematuria, no urinary frequency, no urinary hesitancy, no urinary urgency - Musculoskeletal no back pain, no muscle weakness - Integumentary no erythema, no rash, no swelling - Neurological no confusion, no syncope - Psychiatric no anxiety, no confusion - Hematologic/Lymphatic no easy bleeding, no easy bruising - Allergic/Immunologic no throat swelling, no wheezing Exam Initial Vital Signs Temp Pulse Resp BP Pulse Ox 99.0 F 123 19 115/71 95 01/12/18 22:34 01/12/18 22:34 01/12/18 22:34 01/12/18 22:34 01/12/18 22:34 - General physical appearance Present: well developed, no distress, moderate pain, obese - Eyes Present: PERRL, normal ocular movement - ENT Present: normal nares, no hearing loss, no congestion - Neck Present: no masses, trachea midline - Respiratory Present: normal respiratory effort - Cardiovascular Cardiovascular exam IM: RRR - Abdomen Abdomen: Present: soft, tender (left CVAT). Absent: distended - Integumentary Present: no rash, no abnormal pigmentation - Neurologic Present: normal coordination Urology Results - Labs 01/12/18 23:08 01/12/18 23:08 Abnormal lab results Lymphocytes # 0.2 K/mcL (0.6-4.6) L 01/12/18 23:08 Sodium 133 mEq/L (136-145) L 01/12/18 23:08 Carbon Dioxide 19 mEq/L (23-29) L 01/12/18 23:08 Creatinine 1.51 mg/dL (0.70-1.30) H 01/12/18 23:08 Est GFR (Non-Af Amer) 50 (> 60) L 01/12/18 23:08 Glucose 171 mg/dL (70-105) H 01/12/18 23:08 Calcium 8.5 mg/dL (8.6-10.3) L 01/12/18 23:08 Total Bilirubin 1.4 mg/dL (0.3-1.0) H 01/12/18 23:08 AST 42 Units/L (13-39) H 01/12/18 23:08 ALT 53 Units/L (7-52) H 01/12/18 23:08 Urine Clarity Cloudy (Clear) A 01/13/18 01:25 Urine Protein 100 mg/dL (Neg-Trace) H 01/13/18 01:25 Urine Ketones Trace mg/dL (Negative) H 01/13/18 01:25 Urine Blood Large (Negative) H 01/13/18 01:25 Urine Bilirubin Small (Negative) H 01/13/18 01:25 Ur Leukocyte Esterase Small (Negative) H 01/13/18 01:25 Urine Microscopic RBC TNTC per hpf (0-3) H 01/13/18 01:25 Urine Microscopic WBC 15-30 per hpf (0-3) H 01/13/18 01:25 Ur Squamous Epith Cells Many per lpf (None-Few) H 01/13/18 01:25 Urine Bacteria Many per hpf (None-Few) H 01/13/18 01:25 Ur Culture Indicated? NO. (NO) A 01/13/18 01:25 Diabetes panel 01/12/18 Range/Units 23:08 Sodium 133 L (136-145) mEq/L Potassium 4.0 (3.5-5.1) mEq/L Chloride 103 (98-107) mEq/L Carbon Dioxide 19 L (23-29) mEq/L BUN 18 (6-20) mg/dL Creatinine 1.51 H (0.70-1.30) mg/dL Glucose 171 H (70-105) mg/dL Calcium 8.5 L (8.6-10.3) mg/dL AST 42 H (13-39) Units/L ALT 53 H (7-52) Units/L Alkaline Phosphatase 79 (34-104) Units/L Albumin 3.5 (3.5-5.7) g/dL Calcium panel 01/12/18 Range/Units 23:08 Calcium 8.5 L (8.6-10.3) mg/dL Albumin 3.5 (3.5-5.7) g/dL Pituitary panel 01/12/18 Range/Units 23:08 Sodium 133 L (136-145) mEq/L Potassium 4.0 (3.5-5.1) mEq/L Chloride 103 (98-107) mEq/L Carbon Dioxide 19 L (23-29) mEq/L BUN 18 (6-20) mg/dL Creatinine 1.51 H (0.70-1.30) mg/dL Glucose 171 H (70-105) mg/dL Calcium 8.5 L (8.6-10.3) mg/dL Adrenal panel 01/12/18 Range/Units 23:08 Sodium 133 L (136-145) mEq/L Potassium 4.0 (3.5-5.1) mEq/L Chloride 103 (98-107) mEq/L Carbon Dioxide 19 L (23-29) mEq/L BUN 18 (6-20) mg/dL Creatinine 1.51 H (0.70-1.30) mg/dL Glucose 171 H (70-105) mg/dL Calcium 8.5 L (8.6-10.3) mg/dL Total Bilirubin 1.4 H (0.3-1.0) mg/dL AST 42 H (13-39) Units/L ALT 53 H (7-52) Units/L Alkaline Phosphatase 79 (34-104) Units/L Albumin 3.5 (3.5-5.7) g/dL All other labs normal. - Imaging CT scan - abdomen: report reviewed, image reviewed CT scan - pelvis: report reviewed, image reviewed Consult Discharge Plan - Plan Referrals: Maricruz Prieto, BEHAVIOR CLINICIAN [Primary Care Provider] - <Reece Velez - Last Filed: 01/13/18 17:30> Date of Encounter: 01/13/18 - Assessment and Plan (1) Ureteral calculus, left Current Visit: Yes Status: Acute Assessment and plan: Stent appears in good condition. No obvious evidence of abscess or severe infection in the kidney. Patient may have a UTI resistant to the Bactrim. We will follow cultures. Hopefully hydration and IV antibiotics will improve his condition. We will continue to follow the patient. May consider earlier stone extraction if he improves clinically. Patient seen in conjunction with physician speech language assistant. Agree with her plan. Exam Initial Vital Signs Temp Pulse Resp BP Pulse Ox 99.0 F 123 19 115/71 95 01/12/18 22:34 01/12/18 22:34 01/12/18 22:34 01/12/18 22:34 01/12/18 22:34 Urology Results - Labs 01/13/18 08:33 01/13/18 08:33 Abnormal lab results Hgb 12.4 g/dL (12.9-16.9) L 01/13/18 08:33 Hct 37.4 % (37.5-50.1) L 01/13/18 08:33 Band Neutrophils % 24.0 % (0-4) H 01/13/18 08:33 Lymphocytes # 0.2 K/mcL (0.6-4.6) L 01/12/18 23:08 Toxic Granulation Present (Not Present) A 01/13/18 08:33 Sodium 133 mEq/L (136-145) L 01/13/18 08:33 Carbon Dioxide 21 mEq/L (23-29) L 01/13/18 08:33 Glucose 174 mg/dL (70-105) H 01/13/18 08:33 Calcium 8.3 mg/dL (8.6-10.3) L 01/13/18 08:33 Total Bilirubin 1.4 mg/dL (0.3-1.0) H 01/12/18 23:08 AST 42 Units/L (13-39) H 01/12/18 23:08 ALT 53 Units/L (7-52) H 01/12/18 23:08 Urine Clarity Cloudy (Clear) A 01/13/18 01:25 Urine Protein 100 mg/dL (Neg-Trace) H 01/13/18 01:25 Urine Ketones Trace mg/dL (Negative) H 01/13/18 01:25 Urine Blood Large (Negative) H 01/13/18 01:25 Urine Bilirubin Small (Negative) H 01/13/18 01:25 Ur Leukocyte Esterase Small (Negative) H 01/13/18 01:25 Urine Microscopic RBC TNTC per hpf (0-3) H 01/13/18 01:25 Urine Microscopic WBC 15-30 per hpf (0-3) H 01/13/18 01:25 Ur Squamous Epith Cells Many per lpf (None-Few) H 01/13/18 01:25 Urine Bacteria Many per hpf (None-Few) H 01/13/18 01:25 Ur Culture Indicated? NO. (NO) A 01/13/18 01:25 Diabetes panel 01/12/18 01/13/18 Range/Units 23:08 08:33 Sodium 133 L 133 L (136-145) mEq/L Potassium 4.0 4.4 (3.5-5.1) mEq/L Chloride 103 104 (98-107) mEq/L Carbon Dioxide 19 L 21 L (23-29) mEq/L BUN 18 14 (6-20) mg/dL Creatinine 1.51 H 1.23 (0.70-1.30) mg/dL Glucose 171 H 174 H (70-105) mg/dL Calcium 8.5 L 8.3 L (8.6-10.3) mg/dL AST 42 H (13-39) Units/L ALT 53 H (7-52) Units/L Alkaline Phosphatase 79 (34-104) Units/L Albumin 3.5 (3.5-5.7) g/dL Calcium panel 01/12/18 01/13/18 Range/Units 23:08 08:33 Calcium 8.5 L 8.3 L (8.6-10.3) mg/dL Albumin 3.5 (3.5-5.7) g/dL Pituitary panel 01/12/18 01/13/18 Range/Units 23:08 08:33 Sodium 133 L 133 L (136-145) mEq/L Potassium 4.0 4.4 (3.5-5.1) mEq/L Chloride 103 104 (98-107) mEq/L Carbon Dioxide 19 L 21 L (23-29) mEq/L BUN 18 14 (6-20) mg/dL Creatinine 1.51 H 1.23 (0.70-1.30) mg/dL Glucose 171 H 174 H (70-105) mg/dL Calcium 8.5 L 8.3 L (8.6-10.3) mg/dL Adrenal panel 01/12/18 01/13/18 Range/Units 23:08 08:33 Sodium 133 L 133 L (136-145) mEq/L Potassium 4.0 4.4 (3.5-5.1) mEq/L Chloride 103 104 (98-107) mEq/L Carbon Dioxide 19 L 21 L (23-29) mEq/L BUN 18 14 (6-20) mg/dL Creatinine 1.51 H 1.23 (0.70-1.30) mg/dL Glucose 171 H 174 H (70-105) mg/dL Calcium 8.5 L 8.3 L (8.6-10.3) mg/dL Total Bilirubin 1.4 H (0.3-1.0) mg/dL AST 42 H (13-39) Units/L ALT 53 H (7-52) Units/L Alkaline Phosphatase 79 (34-104) Units/L Albumin 3.5 (3.5-5.7) g/dL All other labs normal.
[2018-01-13 08:43] LABS: Hematocrit 37.4 % (37.5-50.1); Hemoglobin 12.4 g/dL (12.9-16.9); Mean Corpuscular HGB Conc 33.2 g/dL (31.6-35.5); Mean Corpuscular Hemoglobin 28.2 pg (28.0-33.3); Mean Corpuscular Volume 85.2 fL (83.0-100.0); Mean Platelet Volume 10.7 fL (9.4-12.4); Monocytes # 0.3 K/mcL (0.0-1.3); Platelet Count 158 K/mcL (140-400); Red Blood Count 4.39 M/mcL (4.19-5.50); Red Cell Distribution Width 14.2 % (11.5-14.5)
[2018-01-13 09:10] LABS: BUN/Creatinine Ratio 11 (6-26); Blood Urea Nitrogen 14 mg/dL (6-20); Calcium 8.3 mg/dL (8.6-10.3); Carbon Dioxide 21 mEq/L (23-29); Chloride 104 mEq/L (98-107); Glucose 174 mg/dL (70-105); Osmolality,Calculated 281 (280-300); Potassium 4.4 mEq/L (3.5-5.1); Sodium 133 mEq/L (136-145); eGFR For Non-African Americans > 60 (> 60)
[2018-01-13 09:16] LABS: Neutrophils # 6.4 K/mcL (1.6-8.9)
[2018-01-13 09:17] LABS: Platelet Estimate Normal (Normal); Toxic Granulation Present (Not Present)
[2018-01-13] MEDS: Aspirin 325 MG TABLET PO SCH (09:36)
[2018-01-13] MEDS: Acetaminophen 325 MG TABLET PO PRN (15:29)
--- NOTE | 2018-01-13 15:31 | Internal Med Progress Note ---
Hospitalist Progress Note - Encounter Date of Encounter: 01/13/18 Time of Encounter: 14:00 - Subjective Interval History: Mr. Moreno is a 47 year old male with past medical history of hypertension, depression, hypothyroidism, and uric acid nephrolithiasis who had recently undergone cystoscopy with left ureteral stent placement on 12/31/2017 in the setting of a previously identified 8 mm left ureteral stone on CT scan on 2017. His postoperative course was remarkable for febrile illness with a temperature of 102.8. Urine culture were positive for group B strep. Due to the patient's allergy to penicillin, he was placed on oral Bactrim DS twice daily and was discharged on 01/04/18. Patient reports the plan is to follow-up with urology for possible second procedure on January 19. Patient states he was doing fine until about last weekend when he began having left flank pain associated with nausea and vomiting. He states that Thursday was the last time he was able to eat anything. He also reports subjective fever and chills and was found to have a temperature of 101.2 documented at [facility] when he came in this evening. He was also found to be tachycardic with a heart rate in the 130s to 140s and his laboratory workup was significant for, hyponatremia with a sodium of 128, and mild BIRD (1.69). Lactic acid was normal. CT scan was not obtained as their scanner was down. Patient was subsequently to transferred to [facility] [place] after aggressive fluid recent port having received 4 L of normal saline. His tachycardia did improve. Patient was started on levofloxacin based on previous sensitivities. A trial of vancomycin was started as well but patient developed redness at the site of infusion. 01/13: CC: Fevers Patient continued to have low-grade fevers up until this morning, mildly tachycardic. Overall stating he feels much better. Her allergy did evaluate and are planning on stone extraction once his sepsis is resolved. Patient still complains of some comfort in his flank but it is controlled with medication. He denies any nausea, vomiting, diarrhea. No chest pain or shortness of breath. Other than history of present illness a 10 point review of systems is negative. - Exam Vitals: Temp Pulse Resp BP Pulse Ox 98.8 F 108 18 96/64 95 01/13/18 11:11 01/13/18 11:11 01/13/18 11:11 01/13/18 11:11 01/13/18 11:11 Exam: General: Alert and oriented 3, lying in bed in no acute distress though diaphoretic. Ill-appearing Skin:Normal color, small pinpoint erythematous lesions on the lower extremities. Capillary refill less than 2.5 seconds HEENT:EOM, pupils equal, round and reactive. Cardiovascular:Normal S1 & S2, no rubs, murmurs or gallops. No JVD. Pulse regular. Lungs:Normal breath sounds, no wheezes or crackles. Abdomen:Soft, non-tender, no rigidity; Left CVA tenderness. Extremities:No deformity, no edema or tenderness, no joint swelling or clubbing. Neurological:Normal cognition and motor skills. Pulses:Carotid and radial pulses normal +2. Rest of the physical exam is non contributory - Assessment and Plan (1) UTI (urinary tract infection) Current Visit: No Status: Acute Assessment and Plan: We will repeat UA. Follow-up urine culture. 01/13: #2 IV Levaquin. Sepsis is resolving. Await culture data. (2) Acute renal insufficiency Current Visit: No Status: Acute Assessment and Plan: Acute kidney injury in the setting of nausea vomiting and poor by mouth intake. Patient is making urine. We will obtain CT of the abdomen to rule out worsening hydronephrosis. We will continue with aggressive fluid support. Repeat chemistry in the morning. 01/13: Avoid nephrotoxins. IV fluids. Monitor. (3) Acute hyponatremia Current Visit: No Status: Acute Assessment and Plan: Acute hyponatremia with a sodium of 128. Patient received 4 L of normal saline at [place]. We will repeat chemistry and monitor. 01/13: Suspect hypovolemic hyponatremia. Stable. Recheck sodium in the morning. (4) Sepsis Current Visit: Yes Status: Acute Assessment and Plan: Possible sepsis in the setting of Fever, tachycardia and source of infection involving the urinary tract. Patient does not have a white count and no elevated lactic acid at this point. We will repeat basic lab work including lactic acid. Obtain CT of the abdomen and pelvis. Continue with IV Levaquin. Follow-up blood and urine cultures Urology consult for the morning 01/13: Appears to be improving. Continue with close monitoring. Antibiotics. IV fluids. (5) History of constipation Current Visit: Yes Status: Acute (6) Heartburn symptom Current Visit: Yes Status: Acute (7) Nephrolithiasis, uric acid Current Visit: Yes Status: Acute Assessment and Plan: Recent history of nephrolithiasis status post left ureteral stent placement in the setting of previously identified 8mm stone. Continue with IV antibiotics with Levaquin. IV hydration. CT scan of the abdomen and pelvis Urology consult for the morning. Nothing by mouth after midnight 01/13: Management as per urology. Intervention likely once sepsis is resolved. DVT Prophylaxis: Heparin Sub Q - Time Spent with Patient Total time spent is greater than 50% in coordination of care (as documented) at patient's floor/unit and/or counseling patient: 25 - 35 minutes Plan of Care Discussed with: patient Internal Medicine: Result - Labs CBC & Chem 7: 01/13/18 08:33 01/13/18 08:33 Labs: Short CBC 01/12/18 01/13/18 Range/Units 23:08 08:33 WBC 9.3 6.7 (4.3-11.1) K/mcL Hgb 13.4 12.4 L (12.9-16.9) g/dL Hct 38.7 37.4 L (37.5-50.1) % Plt Count 180 158 (140-400) K/mcL Neutrophils # 8.4 6.4 (1.6-8.9) K/mcL BMP 01/12/18 01/13/18 23:08 08:33 Sodium 133 L 133 L Potassium 4.0 4.4 Chloride 103 104 Carbon Dioxide 19 L 21 L BUN 18 14 Creatinine 1.51 H 1.23 Glucose 171 H 174 H Calcium 8.5 L 8.3 L Cardiac Enzymes 01/13/18 Range/Units 01:25 Troponin I < 0.03 (< 0.04) ng/mL Liver Function 01/12/18 Range/Units 23:08 Total Bilirubin 1.4 H (0.3-1.0) mg/dL AST 42 H (13-39) Units/L ALT 53 H (7-52) Units/L Alkaline Phosphatase 79 (34-104) Units/L Albumin 3.5 (3.5-5.7) g/dL Urine 01/13/18 Range/Units 01:25 Urine Color Dark Yellow (Yellow) Urine Clarity Cloudy A (Clear) Urine pH 5.5 (5.0-8.0) pH Units Ur Specific [place] 1.016 (1.010-1.025) Urine Protein 100 H (Neg-Trace) mg/dL Urine Glucose (UA) Normal (Normal) mg/dL - Impressions Impressions Abdomen/Pelvis CT 01/12/18 23:29 IMPRESSION: Interval placement of a left double-J nephroureteral stent. Slight interval transit of 8 mm left ureteral stone which remains in the proximal-mid left ureter. Additional nonobstructing bilateral nephrolithiasis. Hepatomegaly with steatosis. Cholelithiasis. D/ / Stephan Ruano / Stephan Ruano Interpreting Provider: Stephan Ruano Consult Discharge Plan - Plan Referrals: Maricruz Prieto, WOOL CARDER [Primary Care Provider] - (1) UTI (urinary tract infection) Qualifiers: Urinary tract infection type: site unspecified Qualified Code(s): N39.0 - Urinary tract infection, site not specified; R31.9 - Hematuria, unspecified (4) Sepsis Qualifiers: Qualified Code(s): A41.9 - Sepsis, unspecified organism
[2018-01-13] MEDS: Ondansetron 4 MG/2 ML VIAL IVP PRN (15:32)
[2018-01-13] MEDS ORDERED: 0.9 % Sodium Chloride 1,000 ML ONE (18:30)
[2018-01-13] MEDS ORDERED: Levofloxacin 750 MG/150 ML 750 MG/150 ML BAG IVPB SCH (20:00)
[2018-01-14] MEDS: Levothyroxine 25 MCG TABLET PO SCH (05:55)
[2018-01-14] MEDS: *HR* Heparin 5,000 UNIT/ML VIAL SQ SCH ×3 (05:56→21:28)
--- NOTE | 2018-01-14 08:23 | Internal Med Progress Note ---
<Gustavo Black - Last Filed: 01/14/18 11:43> Hospitalist Progress Note - Encounter Date of Encounter: 01/14/18 Time of Encounter: 08:30 - Subjective Interval History: Patient is doing better today. He was able to void without difficulty. Denies dysuria, but does admit to "brown urine". He continues to be nauseous but has not vomited. Did have episode of low grade fever this morning but did not require tylenol and self-resolved. Denies any headaches, blurry vision. Tolerating PO intake. Overall, he is still fatigued but feeling a lot better. - Exam Vitals: Temp Pulse Resp BP Pulse Ox 98.3 F 108 18 119/71 96 01/14/18 06:49 01/14/18 06:49 01/14/18 06:49 01/14/18 06:49 01/14/18 06:49 Exam: General: Alert and oriented 3, lying in bed in no acute distress though diaphoretic. Skin:Normal color, small pinpoint erythematous lesions on the lower extremities. Capillary refill less than 2.5 seconds Cardiovascular:Normal S1 & S2, no rubs, murmurs or gallops. No JVD. tachycardic Lungs:Normal breath sounds, no wheezes or crackles. Abdomen:Soft, non-tender, no rigidity; Left CVA tenderness. Extremities:No deformity, no edema or tenderness, no joint swelling or clubbing. Neurological:Normal cognition and motor skills. Pulses:Carotid and radial pulses normal +2. Rest of the physical exam is non contributory - Assessment and Plan (1) UTI (urinary tract infection) Current Visit: No Status: Acute Assessment and Plan: Urine culture pending. Last culture on 12/31 with GBS sensitive to levaquin. Switch to oral Levaquin day #3 Still tachycardic, diaphoretic, fever this AM. Will keep one more day. (2) Nephrolithiasis, uric acid Current Visit: Yes Status: Acute Assessment and Plan: Recent history of nephrolithiasis status post left ureteral stent placement in the setting of previously identified 8mm stone. Continue with IV antibiotics with Levaquin. IV hydration. CT scan of the abdomen and pelvis demonstrates that stone is still there. Urology recommends treatment of sepsis and UTI. No emergent surgery required at this time in the setting of acute infection. He will have his stone removed as scheduled on 01/19 (3) Acute renal insufficiency Current Visit: No Status: Acute Assessment and Plan: Acute kidney injury in the setting of nausea vomiting and poor by mouth intake. Patient is making urine. CT abd/pelvis demonstrates good placement of left double-J nephroureteral stent. 8mm left ureteral stone remains in the proximal-id left ureter. Additional non-obstructing BL nephrolithiasis. Hematomegaly with steatosis. Cholelithiasis. Avoid nephrotoxins. Continue IV fluids. Monitor. (4) Acute hyponatremia Current Visit: No Status: Acute Assessment and Plan: Improved. Acute hyponatremia with a sodium of 128 on presentation. Patient received 4 L of normal saline at [place]. Today 133 Suspect hypovolemic hyponatremia. Continue hydration. Pending morning labs. (5) Sepsis Current Visit: Yes Status: Acute Assessment and Plan: Sepsis in the setting of fever, tachycardia and UTI. No leukocytosis but positive bands. lactic acid WNL Continue with IV Levaquin. (6) History of constipation Current Visit: Yes Status: Acute Supportive care (7) Heartburn symptom Current Visit: Yes Status: Acute DVT Prophylaxis: Heparin Sub Q - Time Spent with Patient Total time spent is greater than 50% in coordination of care (as documented) at patient's floor/unit and/or counseling patient: Greater than 35 minutes Plan of Care Discussed with: patient Internal Medicine: Result - Labs CBC & Chem 7: 01/14/18 08:40 01/14/18 08:40 Labs: Short CBC 01/13/18 Range/Units 08:33 WBC 6.7 (4.3-11.1) K/mcL Hgb 12.4 L (12.9-16.9) g/dL Hct 37.4 L (37.5-50.1) % Plt Count 158 (140-400) K/mcL Neutrophils # 6.4 (1.6-8.9) K/mcL BMP 01/13/18 08:33 Sodium 133 L Potassium 4.4 Chloride 104 Carbon Dioxide 21 L BUN 14 Creatinine 1.23 Glucose 174 H Calcium 8.3 L Consult Discharge Plan - Plan Referrals: Maricruz Prieto, CAREER ORIENTATION TEACHER [Primary Care Provider] - <Antonino Anderson - Last Filed: 01/14/18 13:46> Hospitalist Progress Note - Encounter Date of Encounter: 01/14/18 - Exam Vitals: Temp Pulse Resp BP Pulse Ox 98.9 F 89 18 106/71 96 01/14/18 10:50 01/14/18 10:50 01/14/18 10:50 01/14/18 10:50 01/14/18 10:50 - Assessment and Plan (1) UTI (urinary tract infection) Current Visit: No Status: Acute (2) Acute renal insufficiency Current Visit: No Status: Inactive (3) Acute hyponatremia Current Visit: No Status: Inactive (4) Sepsis Current Visit: Yes Status: Inactive (5) History of constipation Current Visit: Yes Status: Acute (6) Heartburn symptom Current Visit: Yes Status: Acute (7) Nephrolithiasis, uric acid Current Visit: Yes Status: Acute - Time Spent with Patient Total time spent is greater than 50% in coordination of care (as documented) at patient's floor/unit and/or counseling patient: Internal Medicine: Result - Labs CBC & Chem 7: 01/14/18 08:40 01/14/18 08:40 Labs: Short CBC 01/14/18 Range/Units 08:40 WBC 5.3 (4.3-11.1) K/mcL Hgb 12.8 L (12.9-16.9) g/dL Hct 38.3 (37.5-50.1) % Plt Count 180 (140-400) K/mcL Neutrophils # 4.3 (1.6-8.9) K/mcL BMP 01/14/18 08:40 Sodium 127 L Potassium 4.2 Chloride 99 Carbon Dioxide 20 L BUN 12 Creatinine 1.05 Glucose 167 H Calcium 8.8 - Attending Attestation I performed an independent interview and examine this patient. I agree with the findings, assessment, and plan of , internal medicine resident. Patient's sepsis is resolving. No culture data available. He continues on Levaquin. Awaiting urology decision on whether or not to intervene while in the hospital versus home. Patient is mildly tachycardic and remained in the hospital 1 additional day. Gen: Diaphoretic Neck supple lung ctab ht tachy w RR Abd - soft +BS, NT Ext no edema, numerous scratches bilat LE (states from his cat), no evidence of secondary skin infection <Gustavo Black - Last Filed: 01/14/18 11:43> (1) UTI (urinary tract infection) Qualifiers: Urinary tract infection type: site unspecified <Antonino Anderson R - Last Filed: 01/14/18 13:46> (1) UTI (urinary tract infection) Qualifiers: Urinary tract infection type: site unspecified (4) Sepsis Qualifiers: Qualified Code(s): A41.9 - Sepsis, unspecified organism
[2018-01-14 09:10] LABS: Basophils % 0.2 %; Eosinophils # 0.1 K/mcL (0.0-0.6); Eosinophils % 1.7 %; Hematocrit 38.3 % (37.5-50.1); Hemoglobin 12.8 g/dL (12.9-16.9); Immature Granulocytes % 0.4 % (0-4); Lymphocytes # 0.4 K/mcL (0.6-4.6); Lymphocytes % 8.1 %; Mean Corpuscular HGB Conc 33.4 g/dL (31.6-35.5); Mean Corpuscular Hemoglobin 28.5 pg (28.0-33.3); Mean Corpuscular Volume 85.3 fL (83.0-100.0); Mean Platelet Volume 11.4 fL (9.4-12.4); Monocytes # 0.5 K/mcL (0.0-1.3); Monocytes % 8.6 %; Neutrophils # 4.3 K/mcL (1.6-8.9); Platelet Count 180 K/mcL (140-400); Red Blood Count 4.49 M/mcL (4.19-5.50); Red Cell Distribution Width 14.4 % (11.5-14.5)
[2018-01-14 09:29] LABS: BUN/Creatinine Ratio 11 (6-26); Blood Urea Nitrogen 12 mg/dL (6-20); Calcium 8.8 mg/dL (8.6-10.3); Carbon Dioxide 20 mEq/L (23-29); Chloride 99 mEq/L (98-107); Glucose 167 mg/dL (70-105); Osmolality,Calculated 268 (280-300); Potassium 4.2 mEq/L (3.5-5.1); Sodium 127 mEq/L (136-145); eGFR For Non-African Americans > 60 (> 60)
[2018-01-14] MEDS: Aspirin 325 MG TABLET PO SCH (09:39)
[2018-01-14] MEDS ORDERED: Lithium Carbonate 300 MG CAPSULE PO SCH (11:00)
[2018-01-14] MEDS: ARIPiprazole 10 MG TABLET PO SCH (13:18)
[2018-01-14] MEDS: Lithium Carbonate 300 MG CAPSULE PO SCH (13:19)
[2018-01-14] MEDS: levoFLOXacin 750 MG TABLET PO SCH (13:19)
[2018-01-14] MEDS: risperiDONE 1 MG TABLET PO SCH (21:28)
[2018-01-15 04:16] LABS: Basophils % 0.4 %; Eosinophils # 0.1 K/mcL (0.0-0.6); Eosinophils % 2.6 %; Hematocrit 33.5 % (37.5-50.1); Hemoglobin 11.3 g/dL (12.9-16.9); Immature Granulocytes % 0.6 % (0-4); Lymphocytes # 0.6 K/mcL (0.6-4.6); Lymphocytes % 12.7 %; Mean Corpuscular HGB Conc 33.7 g/dL (31.6-35.5); Mean Corpuscular Hemoglobin 28.7 pg (28.0-33.3); Mean Platelet Volume 11.3 fL (9.4-12.4); Monocytes # 0.5 K/mcL (0.0-1.3); Monocytes % 9.3 %; Neutrophils # 3.7 K/mcL (1.6-8.9); Platelet Count 166 K/mcL (140-400); Red Blood Count 3.94 M/mcL (4.19-5.50); Red Cell Distribution Width 14.5 % (11.5-14.5); Segmented Neutrophils % 74.4 %
[2018-01-15 04:39] LABS: Alanine Aminotransferase 62 Units/L (7-52); Albumin 3.1 g/dL (3.5-5.7); Alkaline Phosphatase 105 Units/L (34-104); Aspartate Amino Transferase 45 Units/L (13-39); BUN/Creatinine Ratio 12 (6-26); Bilirubin,Total 0.7 mg/dL (0.3-1.0); Blood Urea Nitrogen 11 mg/dL (6-20); Calcium 8.7 mg/dL (8.6-10.3); Carbon Dioxide 22 mEq/L (23-29); Chloride 103 mEq/L (98-107); Globulin 3.2 g/dL (2.4-3.5); Glucose 123 mg/dL (70-105); Osmolality,Calculated 275 (280-300); Potassium 4.2 mEq/L (3.5-5.1); Sodium 132 mEq/L (136-145); Total Protein 6.3 g/dL (6.4-8.9); eGFR For Non-African Americans > 60 (> 60)
[2018-01-15] MEDS: Levothyroxine 25 MCG TABLET PO SCH (05:01)
[2018-01-15] MEDS: *HR* Heparin 5,000 UNIT/ML VIAL SQ SCH ×3 (05:01→21:36)
--- NOTE | 2018-01-15 08:51 | Internal Med Progress Note ---
<Gustavo Black - Last Filed: 01/15/18 14:32> Hospitalist Progress Note - Encounter Date of Encounter: 01/15/18 Time of Encounter: 08:00 - Subjective Interval History: Patient is sitting on chair. He appears sleepy. States that he feels worse today with worsening SOB and fatigue. Overnight, he had faint rales and PVCs. He denies chest pain, cough, or palpitations. His physh medications were restarted. He missed a day when he was admitted, but reports that he is usually compliant. Denies fever, chills, nausea, vomiting. Tolerating PO intake and voiding without difficulty. + BM. Denies abdominal pain. - Exam Vitals: Temp Pulse Resp BP Pulse Ox 98.9 F 106 22 134/83 97 01/15/18 06:42 01/15/18 06:42 01/15/18 06:42 01/15/18 06:42 01/15/18 06:42 Exam: General: Alert and oriented 3, Sitting on sofa eating. Appears fatigued and sleepy. Skin:Normal color, small pinpoint erythematous lesions on the lower extremities. Capillary refill less than 2.5 seconds Cardiovascular:Normal S1 & S2, no rubs, murmurs or gallops. No JVD. tachycardic Lungs:Normal breath sounds, no wheezes or crackles. Abdomen:Soft, non-tender, no rigidity; Left CVA tenderness. Extremities:No deformity, no edema or tenderness, no joint swelling or clubbing. Neurological:Normal cognition and motor skills. Pulses:Carotid and radial pulses normal +2. Rest of the physical exam is non contributory - Assessment and Plan (1) SOB (shortness of breath) Current Visit: Yes Status: Acute Assessment and Plan: Patient with complaints of SOB x 1 day. Movement appears to make it worse. He is satting well on 3L NC Independently reviewed CXR this AM: limited due to patient's body habitus but no acute changes noted. Patient is ill-appearing, nauseous, vomiting. Differential includes withdrawal from antipsychotics, but abscess and carcinoma remains in the differential. Will obtain CAT scan with contrast. (2) Tachycardia Current Visit: Yes Status: Acute Assessment and Plan: Patient has been tachycardic since admission. His BP is well controlled. Will increase his Metoprolol dose to BID. PVCs and SOB last night. Denies palpitations. CXR pending. Continue to monitor vital signs. (3) PVC (premature ventricular contraction) Current Visit: Yes Status: Acute (4) UTI (urinary tract infection) Current Visit: No Status: Acute Assessment and Plan: Patient was switched to PO Levaquin yesterday afternoon, currently Day #3. Denies dysuria, hematuria. Flank pain has resolved. Continue with current management. (2) Nephrolithiasis, uric acid Current Visit: Yes Status: Acute Assessment and Plan: Recent history of nephrolithiasis status post left ureteral stent placement in the setting of previously identified 8mm stone. Continue with IV antibiotics with Levaquin. IV hydration. CT scan of the abdomen and pelvis demonstrates that stone is still there. Urology recommends treatment of sepsis and UTI. No emergent surgery required at this time in the setting of acute infection. He will have his stone removed as scheduled on 01/19 (3) Acute renal insufficiency Current Visit: No Status: Acute Assessment and Plan: Acute kidney injury in the setting of nausea vomiting and poor by mouth intake. Patient is making urine. CT abd/pelvis demonstrates good placement of left double-J nephroureteral stent. 8mm left ureteral stone remains in the proximal-id left ureter. Additional non-obstructing BL nephrolithiasis. Hematomegaly with steatosis. Cholelithiasis. Avoid nephrotoxins. Continue IV fluids. Monitor. (4) Acute hyponatremia Current Visit: No Status: Acute Assessment and Plan: Improved. Acute hyponatremia with a sodium of 128 on presentation. Patient received 4 L of normal saline at [place]. Today 133 Suspect hypovolemic hyponatremia. Continue hydration. Pending morning labs. (5) Sepsis Current Visit: Yes Status: Acute Assessment and Plan: Sepsis in the setting of fever, tachycardia and UTI. No leukocytosis but positive bands. lactic acid WNL Continue with IV Levaquin. (6) History of constipation Current Visit: Yes Status: Acute Supportive care (7) Heartburn symptom Current Visit: Yes Status: Acute (5) Nausea and vomiting Current Visit: Yes Status: Acute Assessment and Plan: Patient with nausea and vomiting. Etiology unknown but includes antipsychotic withdrawal. IV Zofran as needed. DVT Prophylaxis: Heparin Sub Q - Time Spent with Patient Total time spent is greater than 50% in coordination of care (as documented) at patient's floor/unit and/or counseling patient: Greater than 35 minutes Plan of Care Discussed with: patient Internal Medicine: Result - Labs CBC & Chem 7: 01/15/18 04:00 01/15/18 04:00 Labs: Short CBC 01/14/18 01/15/18 Range/Units 08:40 04:00 WBC 5.3 5.0 (4.3-11.1) K/mcL Hgb 12.8 L 11.3 L D (12.9-16.9) g/dL Hct 38.3 33.5 L (37.5-50.1) % Plt Count 180 166 (140-400) K/mcL Neutrophils # 4.3 3.7 (1.6-8.9) K/mcL BMP 01/14/18 01/15/18 08:40 04:00 Sodium 127 L 132 L Potassium 4.2 4.2 Chloride 99 103 Carbon Dioxide 20 L 22 L BUN 12 11 Creatinine 1.05 0.89 Glucose 167 H 123 H Calcium 8.8 8.7 Liver Function 01/15/18 Range/Units 04:00 Total Bilirubin 0.7 (0.3-1.0) mg/dL AST 45 H (13-39) Units/L ALT 62 H (7-52) Units/L Alkaline Phosphatase 105 H (34-104) Units/L Albumin 3.1 L (3.5-5.7) g/dL Consult Discharge Plan - Plan Referrals: Maricruz Prieto, OB/GYN DOCTOR [Primary Care Provider] - 01/21/18 10:00 am <Antonino Anderson - Last Filed: 01/15/18 16:45> Hospitalist Progress Note - Encounter Date of Encounter: 01/15/18 - Exam Vitals: Temp Pulse Resp BP Pulse Ox 98.5 F 97 20 118/83 99 01/15/18 16:21 01/15/18 16:21 01/15/18 16:21 01/15/18 16:21 01/15/18 16:21 - Assessment and Plan (1) UTI (urinary tract infection) Current Visit: No Status: Acute (2) Acute renal insufficiency Current Visit: No Status: Inactive (3) Acute hyponatremia Current Visit: No Status: Inactive (4) Sepsis Current Visit: Yes Status: Inactive (5) History of constipation Current Visit: Yes Status: Acute (6) Heartburn symptom Current Visit: Yes Status: Acute (7) Nephrolithiasis, uric acid Current Visit: Yes Status: Acute - Time Spent with Patient Total time spent is greater than 50% in coordination of care (as documented) at patient's floor/unit and/or counseling patient: Internal Medicine: Result - Labs CBC & Chem 7: 01/15/18 04:00 01/15/18 04:00 Labs: Short CBC 01/15/18 Range/Units 04:00 WBC 5.0 (4.3-11.1) K/mcL Hgb 11.3 L D (12.9-16.9) g/dL Hct 33.5 L (37.5-50.1) % Plt Count 166 (140-400) K/mcL Neutrophils # 3.7 (1.6-8.9) K/mcL BMP 01/15/18 04:00 Sodium 132 L Potassium 4.2 Chloride 103 Carbon Dioxide 22 L BUN 11 Creatinine 0.89 Glucose 123 H Calcium 8.7 Liver Function 01/15/18 Range/Units 04:00 Total Bilirubin 0.7 (0.3-1.0) mg/dL AST 45 H (13-39) Units/L ALT 62 H (7-52) Units/L Alkaline Phosphatase 105 H (34-104) Units/L Albumin 3.1 L (3.5-5.7) g/dL - Impressions Impressions Chest X-Ray 01/15/18 08:53 IMPRESSION: 1. Low lung volumes but no active pulmonary disease. 2. Stable cardiomegaly without overt failure. D/ / Zach Rick MD / Zach Rick MD Interpreting Provider: Zach Rick MD Abdomen/Pelvis CT 01/15/18 13:40 IMPRESSION: Stable appearance of the left kidney and left ureteral stent with a 7-8 mm stone lodged within the proximal left ureter. Nonobstructing stones left kidney. Fatty and enlarged liver. Splenomegaly. D/ / Joss Salas / Joss Salas Interpreting Provider: Joss Salas Chest CT 01/15/18 13:40 IMPRESSION: Somewhat streaky bandlike opacities within the posterior right upper lobe and in the lower lobes. Findings may be related to atelectasis or infection. D/ / Camelia Sears MD / Camelia Sears MD Interpreting Provider: Camelia Sears MD - Attending Attestation I performed an independent interview and exam of this patient. I agree with the findings, assessment, and plan of , family practice resident. Patient had imaging today which showed possible multifocal pneumonia. He continues on Levaquin. His abdomen CT did not show any new pathology, no abscess. Patient still states he does not feel well. We will continue current measures with antibiotics, close monitoring. Blood Cultures remain negative. No urine culture data available. Urology is planning intervention potentially on January 19. She remains on supplemental oxygen we will attempt to wean. I do not believe he is in congestive heart failure. Exam Gen: diaphoretic, NAD but ill appearing Neck supple lung ctab ht rrr abd soft +BS, NT Ext tr edema Neuro nonfocal <Gustavo Black - Last Filed: 01/15/18 14:32> (4) UTI (urinary tract infection) Qualifiers: Urinary tract infection type: site unspecified <Antonino Anderson - Last Filed: 01/15/18 16:45> (1) UTI (urinary tract infection) Qualifiers: Urinary tract infection type: site unspecified (4) Sepsis Qualifiers: Qualified Code(s): A41.9 - Sepsis, unspecified organism
[2018-01-15] MEDS: ARIPiprazole 10 MG TABLET PO SCH (08:52)
[2018-01-15] MEDS: Lithium Carbonate 300 MG CAPSULE PO SCH (08:53)
[2018-01-15] MEDS: Aspirin 325 MG TABLET PO SCH (08:53)
[2018-01-15] MEDS: levoFLOXacin 750 MG TABLET PO SCH (08:53)
[2018-01-15] MEDS: Ondansetron 4 MG/2 ML VIAL IVP PRN (11:04)
[2018-01-15] MEDS ORDERED: Isovue-370 500 ML INFUS..BTL IV ONE (12:02)
[2018-01-15] MEDS ORDERED: 0.9 % Sodium Chloride 1,000 ML ONE (12:15)
[2018-01-15] MEDS: risperiDONE 1 MG TABLET PO SCH (21:36)
[2018-01-16] MEDS: *HR* Heparin 5,000 UNIT/ML VIAL SQ SCH ×2 (05:20→14:03)
[2018-01-16] MEDS: Levothyroxine 25 MCG TABLET PO SCH (05:20)
[2018-01-16 05:26] LABS: Basophils % 0.4 %; Eosinophils # 0.2 K/mcL (0.0-0.6); Eosinophils % 4.2 %; Hematocrit 34.1 % (37.5-50.1); Hemoglobin 11.3 g/dL (12.9-16.9); Immature Granulocytes % 0.6 % (0-4); Lymphocytes # 0.8 K/mcL (0.6-4.6); Lymphocytes % 14.4 %; Mean Corpuscular HGB Conc 33.1 g/dL (31.6-35.5); Mean Corpuscular Hemoglobin 28.2 pg (28.0-33.3); Mean Platelet Volume 10.9 fL (9.4-12.4); Monocytes # 0.5 K/mcL (0.0-1.3); Monocytes % 10.1 %; Neutrophils # 3.7 K/mcL (1.6-8.9); Platelet Count 198 K/mcL (140-400); Red Blood Count 4.01 M/mcL (4.19-5.50); Red Cell Distribution Width 14.7 % (11.5-14.5); Segmented Neutrophils % 70.3 %
[2018-01-16 05:53] LABS: Alanine Aminotransferase 81 Units/L (7-52); Albumin/Globulin Ratio 0.9 (1.1-2.2); Alkaline Phosphatase 115 Units/L (34-104); Aspartate Amino Transferase 63 Units/L (13-39); BUN/Creatinine Ratio 13 (6-26); Bilirubin,Total 0.7 mg/dL (0.3-1.0); Blood Urea Nitrogen 11 mg/dL (6-20); Calcium 8.9 mg/dL (8.6-10.3); Carbon Dioxide 25 mEq/L (23-29); Chloride 101 mEq/L (98-107); Globulin 3.5 g/dL (2.4-3.5); Glucose 132 mg/dL (70-105); Osmolality,Calculated 279 (280-300); Potassium 4.1 mEq/L (3.5-5.1); Sodium 134 mEq/L (136-145); Total Protein 6.5 g/dL (6.4-8.9); eGFR For Non-African Americans > 60 (> 60)
[2018-01-16] MEDS: levoFLOXacin 750 MG TABLET PO SCH (08:35)
[2018-01-16] MEDS: Lithium Carbonate 300 MG CAPSULE PO SCH (08:35)
[2018-01-16] MEDS: Aspirin 325 MG TABLET PO SCH (08:35)
[2018-01-16] MEDS: ARIPiprazole 10 MG TABLET PO SCH (08:36)
--- NOTE | 2018-01-16 09:52 | Internal Med Progress Note ---
<Antonino Anderson - Last Filed: 01/16/18 12:53> Hospitalist Progress Note - Encounter Date of Encounter: 01/16/18 - Exam Vitals: Temp Pulse Resp BP Pulse Ox 97.8 F 95 18 98/68 97 01/16/18 10:31 01/16/18 10:31 01/16/18 10:31 01/16/18 10:31 01/16/18 08:50 - Assessment and Plan (1) UTI (urinary tract infection) Current Visit: No Status: Acute (2) Acute renal insufficiency Current Visit: No Status: Inactive (3) Acute hyponatremia Current Visit: No Status: Inactive (4) Sepsis Current Visit: Yes Status: Inactive (5) History of constipation Current Visit: Yes Status: Acute (6) Heartburn symptom Current Visit: Yes Status: Acute (7) Nephrolithiasis, uric acid Current Visit: Yes Status: Acute - Time Spent with Patient Total time spent is greater than 50% in coordination of care (as documented) at patient's floor/unit and/or counseling patient: Internal Medicine: Result - Labs CBC & Chem 7: 01/16/18 05:12 01/16/18 05:12 Labs: Short CBC 01/16/18 Range/Units 05:12 WBC 5.3 (4.3-11.1) K/mcL Hgb 11.3 L (12.9-16.9) g/dL Hct 34.1 L (37.5-50.1) % Plt Count 198 (140-400) K/mcL Neutrophils # 3.7 (1.6-8.9) K/mcL BMP 01/16/18 05:12 Sodium 134 L Potassium 4.1 Chloride 101 Carbon Dioxide 25 BUN 11 Creatinine 0.82 Glucose 132 H Calcium 8.9 Liver Function 01/16/18 Range/Units 05:12 Total Bilirubin 0.7 (0.3-1.0) mg/dL AST 63 H (13-39) Units/L ALT 81 H (7-52) Units/L Alkaline Phosphatase 115 H (34-104) Units/L Albumin 3.0 L (3.5-5.7) g/dL - Impressions Impressions Chest X-Ray 01/15/18 08:53 IMPRESSION: 1. Low lung volumes but no active pulmonary disease. 2. Stable cardiomegaly without overt failure. D/ / Zach Rick MD / Zach Rick MD Interpreting Provider: Zach Rick MD Abdomen/Pelvis CT 01/15/18 13:40 IMPRESSION: Stable appearance of the left kidney and left ureteral stent with a 7-8 mm stone lodged within the proximal left ureter. Nonobstructing stones left kidney. Fatty and enlarged liver. Splenomegaly. D/ / Joss Salas / Joss Salas Interpreting Provider: Joss Salas Chest CT 01/15/18 13:40 IMPRESSION: Somewhat streaky bandlike opacities within the posterior right upper lobe and in the lower lobes. Findings may be related to atelectasis or infection. D/ / Camelia Sears MD / Camelia Sears MD Interpreting Provider: Camelia Sears MD Consult Discharge Plan - Plan Referrals: Maricruz Prieto, PURE CULTURE OPERATOR [Primary Care Provider] - 01/21/18 10:00 am - Attending Attestation I performed an independent interview and and exam of this patient. I am in agreement with the findings, assessment, and plan of Dr. Chang, internal medicine resident. Allergy input today is appreciated. Plan for stone extraction on January 19. Patient continues to have low-grade fevers and requires no oxygen. We are diuresing him. His chest x-ray also shows possible pneumonia for which he is on Levaquin. He still has an ill appearance and we continue to monitor. Exam: Gen.: Ill-appearing, diaphoretic, awake alert and oriented 3 Skin is warm and diaphoretic, flushed Neck is supple Oropharynx is moist Lungs show diminished breath sounds at the bases Heart is regular rate and rhythm Abdomen is soft obese nontender with normoactive bowel sounds Extremities show 2+ edema bilaterally, extensive Scratches on bilateral lower extremities Neurologic is nonfocal. We will continue with her efforts to diuresis and weaning off oxygen. Will review records and if no echo has been performed and get one. All else as outlined above. <Javier Chang - Last Filed: 01/16/18 13:38> Hospitalist Progress Note - Encounter Date of Encounter: 01/16/18 Time of Encounter: 10:30 - Subjective Interval History: Patient was seen and examined; he is sitting upright in his recliner. He reports that laying flat makes him short of breath, and that sitting in the recliner allows him to breathe better. He admits to mild shortness of breath, but denies fevers, chills, n/v/d, chest pain, or palpitations. He has no further complaints. - Exam Vitals: Temp Pulse Resp BP Pulse Ox 98.5 F 91 18 109/66 97 01/16/18 07:06 01/16/18 07:06 01/16/18 07:06 01/16/18 07:06 01/16/18 08:50 Exam: General: Diaphoretic, in mild respiratory distress Head: Atraumatic, normocephalic Heart: RRR, no murmurs rubs or gallops Lungs: Shortened expiratory phase, bibasilar crackles Abdomen: Soft, nontender Neuro: No focal deficits Extremities: Pulses 2/4 throughout. No edema Skin: Dry and intact. No lesions or bruising noted - Assessment and Plan (1) SOB (shortness of breath) Current Visit: Yes Status: Acute Assessment and Plan: Presented w/ complaints of SOB x 1 day; exacerbated by movement - He is satting well on 3L NC - Independently reviewed CXR this AM: limited due to patient's body habitus but no acute changes noted - Patient is ill-appearing, nauseous, vomiting CT chest, 01/15: - Somewhat streaky bandlike opacities within the posterior RUL and in lower lobes - Findings may be related to atelectasis or infection Plan: - Levaquin 750 mg by mouth daily, Day #4 (2) Tachycardia Current Visit: Yes Status: Acute Assessment and Plan: - Patient has been tachycardic since admission - BP is well controlled; Metoprolol increased to BID - Had PVCs - Denies palpitations (3) UTI (urinary tract infection) Current Visit: No Status: Acute Assessment and Plan: - Levaquin 750 mg by mouth daily, Day #4 - Denies dysuria, hematuria - Flank pain has resolved (4) Nephrolithiasis, uric acid Current Visit: Yes Status: Acute Assessment and Plan: Recent history of nephrolithiasis status post left ureteral stent placement in the setting of previously identified 8mm stone. - CT scan of the abdomen and pelvis demonstrates that stone is still there. - No emergent surgery required at this time - Will have the stone removed as scheduled on 01/19 (5) Hyponatremia Current Visit: Yes Status: Acute Assessment and Plan: Improved; 134 today DVT Prophylaxis: Heparin Sub Q - Time Spent with Patient Total time spent is greater than 50% in coordination of care (as documented) at patient's floor/unit and/or counseling patient: Internal Medicine: Result - Labs CBC & Chem 7: 01/16/18 05:12 01/16/18 05:12 Labs: Short CBC 01/16/18 Range/Units 05:12 WBC 5.3 (4.3-11.1) K/mcL Hgb 11.3 L (12.9-16.9) g/dL Hct 34.1 L (37.5-50.1) % Plt Count 198 (140-400) K/mcL Neutrophils # 3.7 (1.6-8.9) K/mcL BMP 01/16/18 05:12 Sodium 134 L Potassium 4.1 Chloride 101 Carbon Dioxide 25 BUN 11 Creatinine 0.82 Glucose 132 H Calcium 8.9 Liver Function 01/16/18 Range/Units 05:12 Total Bilirubin 0.7 (0.3-1.0) mg/dL AST 63 H (13-39) Units/L ALT 81 H (7-52) Units/L Alkaline Phosphatase 115 H (34-104) Units/L Albumin 3.0 L (3.5-5.7) g/dL - Impressions Impressions Chest X-Ray 01/15/18 08:53 IMPRESSION: 1. Low lung volumes but no active pulmonary disease. 2. Stable cardiomegaly without overt failure. D/ / aZch Rick MD / Zach Rick MD Interpreting Provider: Zach Rick MD Abdomen/Pelvis CT 01/15/18 13:40 IMPRESSION: Stable appearance of the left kidney and left ureteral stent with a 7-8 mm stone lodged within the proximal left ureter. Nonobstructing stones left kidney. Fatty and enlarged liver. Splenomegaly. D/ / Joss Salas / Joss Salas Interpreting Provider: Joss Salas Chest CT 01/15/18 13:40 IMPRESSION: Somewhat streaky bandlike opacities within the posterior right upper lobe and in the lower lobes. Findings may be related to atelectasis or infection. D/ / Camelia Sears MD / Camelia Sears MD Interpreting Provider: Camelia Sears MD <Antonino Anderson - Last Filed: 01/16/18 12:53> (1) UTI (urinary tract infection) Qualifiers: Urinary tract infection type: site unspecified (4) Sepsis Qualifiers: Qualified Code(s): A41.9 - Sepsis, unspecified organism <Javier Chang - Last Filed: 01/16/18 13:38> (3) UTI (urinary tract infection) Qualifiers: Urinary tract infection type: site unspecified
--- NOTE | 2018-01-16 10:49 | Urology Progress Note ---
Date of Encounter: 01/16/18 Time of Encounter: 10:48 - Assessment and Plan (1) Ureteral calculus, left Current Visit: Yes Status: Acute Assessment and plan: reviewed CT scan. no acute findings. seems to be recovering. will plan to proceed with stone extraction as scheduled thursday. possible pneumonia/ atelectasis noted. OK for discahrge per standpoint if stable. Progress Note Narrative: pt asleep Objective Initial Vital Signs Temp Pulse Resp BP Pulse Ox 99.0 F 123 19 115/71 95 01/12/18 22:34 01/12/18 22:34 01/12/18 22:34 01/12/18 22:34 01/12/18 22:34 - General physical appearance Present: no distress - Labs 01/16/18 05:12 01/16/18 05:12 Diabetes panel 01/16/18 Range/Units 05:12 Sodium 134 L (136-145) mEq/L Potassium 4.1 (3.5-5.1) mEq/L Chloride 101 (98-107) mEq/L Carbon Dioxide 25 (23-29) mEq/L BUN 11 (6-20) mg/dL Creatinine 0.82 (0.70-1.30) mg/dL Glucose 132 H (70-105) mg/dL Calcium 8.9 (8.6-10.3) mg/dL AST 63 H (13-39) Units/L ALT 81 H (7-52) Units/L Alkaline Phosphatase 115 H (34-104) Units/L Albumin 3.0 L (3.5-5.7) g/dL Calcium panel 01/16/18 Range/Units 05:12 Calcium 8.9 (8.6-10.3) mg/dL Albumin 3.0 L (3.5-5.7) g/dL Pituitary panel 01/16/18 Range/Units 05:12 Sodium 134 L (136-145) mEq/L Potassium 4.1 (3.5-5.1) mEq/L Chloride 101 (98-107) mEq/L Carbon Dioxide 25 (23-29) mEq/L BUN 11 (6-20) mg/dL Creatinine 0.82 (0.70-1.30) mg/dL Glucose 132 H (70-105) mg/dL Calcium 8.9 (8.6-10.3) mg/dL Adrenal panel 01/16/18 Range/Units 05:12 Sodium 134 L (136-145) mEq/L Potassium 4.1 (3.5-5.1) mEq/L Chloride 101 (98-107) mEq/L Carbon Dioxide 25 (23-29) mEq/L BUN 11 (6-20) mg/dL Creatinine 0.82 (0.70-1.30) mg/dL Glucose 132 H (70-105) mg/dL Calcium 8.9 (8.6-10.3) mg/dL Total Bilirubin 0.7 (0.3-1.0) mg/dL AST 63 H (13-39) Units/L ALT 81 H (7-52) Units/L Alkaline Phosphatase 115 H (34-104) Units/L Albumin 3.0 L (3.5-5.7) g/dL Consult Discharge Plan - Plan Referrals: Maricruz Prieto, AUDIO VISUAL TECHNICIAN [Primary Care Provider] - 01/21/18 10:00 am
[2018-01-16] MEDS: Furosemide 40 MG/4 ML VIAL IVP SCH ×2 (14:34→18:10)
[2018-01-16] MEDS: *HR* Enoxaparin 100 MG/ML SYRINGE SQ SCH (18:09)
[2018-01-16] MEDS: risperiDONE 1 MG TABLET PO SCH (21:54)
[2018-01-17 03:28] LABS: Basophils % 0.4 %; Eosinophils # 0.3 K/mcL (0.0-0.6); Eosinophils % 5.6 %; Hematocrit 35.7 % (37.5-50.1); Hemoglobin 11.7 g/dL (12.9-16.9); Immature Granulocytes % 1.5 % (0-4); Lymphocytes % 17.3 %; Mean Corpuscular HGB Conc 32.8 g/dL (31.6-35.5); Mean Corpuscular Hemoglobin 28.1 pg (28.0-33.3); Mean Corpuscular Volume 85.6 fL (83.0-100.0); Monocytes # 0.6 K/mcL (0.0-1.3); Monocytes % 10.4 %; Neutrophils # 3.6 K/mcL (1.6-8.9); Platelet Count 220 K/mcL (140-400); Red Blood Count 4.17 M/mcL (4.19-5.50); Red Cell Distribution Width 14.6 % (11.5-14.5); Segmented Neutrophils % 64.8 %
[2018-01-17 03:48] LABS: Alanine Aminotransferase 85 Units/L (7-52); Albumin 3.2 g/dL (3.5-5.7); Albumin/Globulin Ratio 0.9 (1.1-2.2); Alkaline Phosphatase 116 Units/L (34-104); Aspartate Amino Transferase 57 Units/L (13-39); BUN/Creatinine Ratio 18 (6-26); Bilirubin,Total 0.6 mg/dL (0.3-1.0); Blood Urea Nitrogen 13 mg/dL (6-20); Carbon Dioxide 26 mEq/L (23-29); Chloride 100 mEq/L (98-107); Globulin 3.4 g/dL (2.4-3.5); Glucose 114 mg/dL (70-105); Osmolality,Calculated 279 (280-300); Potassium 3.8 mEq/L (3.5-5.1); Sodium 134 mEq/L (136-145); Total Protein 6.6 g/dL (6.4-8.9); eGFR For Non-African Americans > 60 (> 60)
[2018-01-17 04:02] LABS: Thyroid Stimulating Hormone 9.192 mcIU/mL (0.340-5.600)
[2018-01-17] MEDS: *HR* Enoxaparin 100 MG/ML SYRINGE SQ SCH (05:25)
[2018-01-17] MEDS: Levothyroxine 25 MCG TABLET PO SCH (05:25)
[2018-01-17] MEDS ORDERED: 0.9 % Sodium Chloride 1,000 ML ONE (06:01)
--- NOTE | 2018-01-17 09:19 | Discharge Summary ---
- NOTES TO OUTPATIENT PROVIDER Notes to Outpatient Provider: Patient will follow up with urology for extraction of left proximal ureteral stone on 01/19/2018. Orders not resulted at time of discharge: Pending orders 01/14/18 21:49 Culture,Blood [BC] Stat 01/16/18 13:06 EV echocardiogram Routine Date of Encounter: 01/17/18 Time of Encounter: 08:30 - Discharge Diagnosis (1) UTI (urinary tract infection) Priority: Primary Status: Acute Qualifiers: Urinary tract infection type: site unspecified (2) Acute renal insufficiency Priority: Secondary Status: Inactive (3) Acute hyponatremia Priority: Secondary Status: Inactive (4) Sepsis Priority: Primary Status: Inactive Qualifiers: Qualified Code(s): A41.9 - Sepsis, unspecified organism (5) History of constipation Priority: Secondary Status: Acute (6) Heartburn symptom Priority: Secondary Status: Acute (7) Nephrolithiasis, uric acid Priority: Primary Status: Acute (8) Community acquired pneumonia Priority: Primary Status: Acute Hospital course: Patient is a 47-year-old male who presents a 4 day history of left flank pain, nausea and febrile illness. Patient has a known left proximal 8 mm ureteral stone and underwent left ureteral stent placement on 12/31/[address] Feng. At that time, patient was found to have group B strep urinary tract infection and fever of 102. The patient was given IV antibiotics, discharged with oral Bactrim, and was tentatively scheduled for stone extraction procedure on 01/19/2018. Approximately 4 days ago, the patient states left flank pain returned and was accompanied with nausea, decreased appetite, chills, diaphoresis and fever. The patient presented to [facility] emergency department and was subsequently transferred to [facility] ED for further evaluation. The patient underwent a repeat CT scan of abdomen and pelvis which confirmed prior findings of left proximal 8 mm ureteral stone. The patient still has the left ureteral stent in place. Based on prior sensitivity, the patient has been placed on IV Levaquin. Patient was unable to tolerate vancomycin due to redness at infusion site. 01/16/2018: Patient was admitted with sepsis originally felt to be due to urinary tract infection. He also had x-ray findings of community acquired pneumonia for which he was treated with Levaquin for both. On day of discharge patient is a #5 of a planned 10 day course of Levaquin. He did have a chest CAT scan to evaluate for hypoxemic restaurant failure which showed streaky bandlike opacities in the right upper lobe and in the lower lobes bilaterally concerning for pneumonia. He also had a CT abdomen and pelvis which showed stable appearance of the left kidney with a left ureteral stent and a 7-8 mm stone lodged within the proximal left ureter. There are several other nonobstructing stones in the left kidney. He had fatty liver and mild splenomegaly. Treatment his sepsis resolved. He had blood cultures performed on admission which have remained negative. No urine culture data available. Patient was also diuresed with IV Lasix after receiving a sepsis fluid bolus and his hypoxemia did resolve. - Time Spent with Patient Total time spent providing and/or coordinating discharge services: - Discharge Medications Home Medications: Levothyroxine [Synthroid] 25 mcg PO 0630 03/11/16 [History] Carriz[place] Carbonate 900 mg PO DAILY 03/11/16 [History] Losartan Potassium [Cozaar] 50 mg PO DAILY 03/11/16 [History] Metoprolol [Lopressor] 25 mg PO DAILY 03/11/16 [History] risperiDONE [Risperidone] 1 mg PO HS 03/11/16 [History] Aripiprazole [Abilify] 30 mg PO DAILY 12/31/17 [History] Aspirin 325 mg PO DAILY 12/31/17 [History] Potassium Citrate [Urocit-K] 2 tab PO BID 01/01/18 [History] cloNIDine HCl [CloNIDine HCl] 0.1 mg PO DAILY 01/01/18 [History] Sulfamethoxazole/Trimeth DS [Bactrim DS] 1 each PO BID #20 tablet 01/04/18 [Rx] Allergies/Adverse Reactions: 3 Allergy/AdvReac Type Severity Reaction Status Date / Time Beef Containing Products Allergy Swelling Verified 12/28/17 20:22 of Lip/Tongue/Throat Penicillins [PCN] Allergy Dizziness Verified 03/11/16 12:00 Date of admission: 01/13/18 15:09 Primary care physician: Maricruz Prieto CNP Consults: 01/12/18 23:36 Consult to Urology [CONS] Routine Consulting Provider: Urology Cassie Reason for Consult: Nephrolithiasis s/p Left Ureteral stent with ongoing fever despite Abx (doxy) Call Completed: No Discharging clinician: Antonino Anderson Anticipated date of discharge: 01/17/18 - Constitutional Vitals: Temp Pulse Resp BP Pulse Ox 98.5 F 97 18 112/70 97 01/17/18 08:00 01/17/18 08:00 01/17/18 08:00 01/17/18 08:00 01/17/18 07:04 - Discharge Instructions Follow Up With: Maricruz Prieto, PRESIDENTIAL SUPPORT SPECIALIST [Primary Care Provider] - 01/21/18 10:00 am
[2018-01-17] MEDS: ARIPiprazole 10 MG TABLET PO SCH (10:21)
[2018-01-17] MEDS: levoFLOXacin 750 MG TABLET PO SCH (10:22)
[2018-01-17] MEDS: Lithium Carbonate 300 MG CAPSULE PO SCH (10:22)
[2018-01-17] MEDS: Acetaminophen 325 MG TABLET PO PRN (10:22)
[2018-01-17] MEDS: Aspirin 325 MG TABLET PO SCH (10:22)
[2018-01-17] MEDS ORDERED: Perflutren Lipid Microsphere 1.3 ML in 0.9 % Sodium Chloride 8.7 ML IVP ONE (10:39)
[2018-01-17] MEDS: Furosemide 40 MG/4 ML VIAL IVP SCH (10:42)
--- NOTE | 2018-01-17 11:59 | Internal Med Progress Note ---
Hospitalist Progress Note - Encounter Date of Encounter: 01/17/18 Time of Encounter: 10:00 - Subjective Interval History: Mr. Moreno is a 47 year old male with past medical history of hypertension, depression, hypothyroidism, and uric acid nephrolithiasis who had recently undergone cystoscopy with left ureteral stent placement on 12/31/2017 in the setting of a previously identified 8 mm left ureteral stone on CT scan on 2017. His postoperative course was remarkable for febrile illness with a temperature of 102.8. Urine culture were positive for group B strep. Due to the patient's allergy to penicillin, he was placed on oral Bactrim DS twice daily and was discharged on 01/04/18. Patient reports the plan is to follow-up with urology for possible second procedure on January 19. Patient states he was doing fine until about last weekend when he began having left flank pain associated with nausea and vomiting. He states that Thursday was the last time he was able to eat anything. He also reports subjective fever and chills and was found to have a temperature of 101.2 documented at [facility] when he came in this evening. He was also found to be tachycardic with a heart rate in the 130s to 140s and his laboratory workup was significant for, hyponatremia with a sodium of 128, and mild BIRD (1.69). Lactic acid was normal. CT scan was not obtained as their scanner was down. Patient was subsequently to transferred to [facility] after aggressive fluid recent port having received 4 L of normal saline. His tachycardia did improve. Patient was started on levofloxacin based on previous sensitivities. A trial of vancomycin was started as well but patient developed redness at the site of infusion. 01/13: CC: Fevers Patient continued to have low-grade fevers up until this morning, mildly tachycardic. Overall stating he feels much better. Her allergy did evaluate and are planning on stone extraction once his sepsis is resolved. Patient still complains of some comfort in his flank but it is controlled with medication. He denies any nausea, vomiting, diarrhea. No chest pain or shortness of breath. 01/17: Patient states his shortness of breath is improved. He has been weaned off supplemental oxygen. States overall feeling better but is now complaining of pain in his left lateral foot. This is just below the great toe. Patient states this is typical for "my gout". Patient denies any fevers or chills. No nausea, vomiting, diarrhea. No chest pain or shortness of breath. No abdominal pain. Weakness has improved as well. Other than history of present illness a 10 point review of systems is negative. - Exam Vitals: Temp Pulse Resp BP Pulse Ox 98.6 F 98 18 108/74 96 01/17/18 09:00 01/17/18 09:00 01/17/18 09:00 01/17/18 09:00 01/17/18 09:00 Exam: General: Obese, no acute distress, awake alert and oriented 3. His diaphoresis has resolved. Skin is warm and dry. He has numerous scratch ramirez on bilateral lower anterior shins which he attributes to his cat scratching him Neck is supple Lungs are clear bilaterally, diminished breath sounds at the bases Heart is regular rate and rhythm Abdomen is soft nontender nondistended with normoactive bowel sounds Extremities show 1+ edema bilaterally. His left foot is tender to palpation on the lateral aspect below his first metatarsophalangeal joint. Patient states this is a typical spot for him to get gout. No chelsi erythema. No fluctuance. Neurological exam is nonfocal - Assessment and Plan (1) Community acquired pneumonia Current Visit: Yes Status: Acute Assessment and Plan: Day #6 of a planned 10 day course of Levaquin. Does have improved. His hypoxemia is resolving Follow-up chest x-ray in 4 weeks. (2) UTI (urinary tract infection) Current Visit: No Status: Acute Assessment and Plan: We will repeat UA. Follow-up urine culture. 01/17: #6 Levaquin. Sepsis is resolving. No culture data. (3) Acute renal insufficiency Current Visit: No Status: Inactive Assessment and Plan: Acute kidney injury in the setting of nausea vomiting and poor by mouth intake. Patient is making urine. We will obtain CT of the abdomen to rule out worsening hydronephrosis. We will continue with aggressive fluid support. Repeat chemistry in the morning. 01/13: Avoid nephrotoxins. IV fluids. Monitor. 01/17: Resolved. Avoid nephrotoxins as best able. Monitor. (4) Acute hyponatremia Current Visit: No Status: Inactive Assessment and Plan: Acute hyponatremia with a sodium of 128. Patient received 4 L of normal saline at [facility]. We will repeat chemistry and monitor. 01/13: Suspect hypovolemic hyponatremia. Stable. Recheck sodium in the morning. 01/17: Improved (5) Sepsis Current Visit: Yes Status: Inactive Assessment and Plan: Possible sepsis in the setting of Fever, tachycardia and source of infection involving the urinary tract. Patient does not have a white count and no elevated lactic acid at this point. We will repeat basic lab work including lactic acid. Obtain CT of the abdomen and pelvis. Continue with IV Levaquin. Follow-up blood and urine cultures Urology consult for the morning 01/13: Appears to be improving. Continue with close monitoring. Antibiotics. IV fluids. 01/17: Sepsis resolved (6) History of constipation Current Visit: Yes Status: Acute Assessment and Plan: History of constipation. We will start patient on prn Senna and MiraLAX (7) Heartburn symptom Current Visit: Yes Status: Acute (8) Nephrolithiasis, uric acid Current Visit: Yes Status: Acute Assessment and Plan: Recent history of nephrolithiasis status post left ureteral stent placement in the setting of previously identified 8mm stone. Continue with IV antibiotics with Levaquin. IV hydration. CT scan of the abdomen and pelvis Urology consult for the morning. Nothing by mouth after midnight 01/13: Management as per urology. Intervention likely once sepsis is resolved. 01/17: Stone extraction scheduled for January 19 (9) Acute hypoxemic respiratory failure Current Visit: Yes Status: Acute Assessment and Plan: Likely due to pneumonia. Cannot rule out a component of diastolic CHF, acute. Will check an echocardiogram. He has responded well to IV Lasix. He is on beta monique. Pressure is now well controlled. I do wonder if he also has undiagnosed sleep apnea and/or chronic obesity hypoventilation syndrome. Recommend outpatient sleep study as well. (10) Gout Current Visit: Yes Status: Acute Assessment and Plan: May be the result of giving Lasix. Patient states this is a very typical "flare " for him. We will consider cautious NSAID therapy if worsens or does not improve after lasix stopped. I am hesitant to use steroids in the setting of infection. His Lasix has now been stopped. Will monitor. (11) Morbid obesity with BMI of 50.0-59.9, adult Current Visit: Yes Status: Acute DVT Prophylaxis: States he is allergic to beef-containing products. Will use SCDs. - Time Spent with Patient Total time spent is greater than 50% in coordination of care (as documented) at patient's floor/unit and/or counseling patient: 25 - 35 minutes Plan of Care Discussed with: patient Internal Medicine: Result - Labs CBC & Chem 7: 01/17/18 03:09 01/17/18 03:09 Labs: Short CBC 01/17/18 Range/Units 03:09 WBC 5.5 (4.3-11.1) K/mcL Hgb 11.7 L (12.9-16.9) g/dL Hct 35.7 L (37.5-50.1) % Plt Count 220 (140-400) K/mcL Neutrophils # 3.6 (1.6-8.9) K/mcL BMP 01/17/18 03:09 Sodium 134 L Potassium 3.8 Chloride 100 Carbon Dioxide 26 BUN 13 Creatinine 0.73 Glucose 114 H Calcium 9.0 Liver Function 01/17/18 Range/Units 03:09 Total Bilirubin 0.6 (0.3-1.0) mg/dL AST 57 H (13-39) Units/L ALT 85 H (7-52) Units/L Alkaline Phosphatase 116 H (34-104) Units/L Albumin 3.2 L (3.5-5.7) g/dL Consult Discharge Plan - Plan Referrals: Maricruz Prieto, CHAIRMAN AND CEO [Primary Care Provider] - 01/21/18 10:00 am (1) Community acquired pneumonia Qualifiers: Laterality: right Lung location: lower lobe of lung Qualified Code(s): J18.1 - Lobar pneumonia, unspecified organism (2) UTI (urinary tract infection) Qualifiers: Urinary tract infection type: site unspecified (10) Gout Qualifiers: Gout site: foot Gout etiology: drug-induced Chronicity: acute Laterality: left Qualified Code(s): M10.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
[2018-01-17 13:01] LABS: Uric Acid 6.2 mg/dL (2.3-7.6)
[2018-01-17] MEDS: risperiDONE 1 MG TABLET PO SCH (21:15)
[2018-01-18] MEDS ORDERED: *HR* Enoxaparin 40 MG/0.4 ML SYRINGE SQ SCH (06:00)
[2018-01-18] MEDS: Levothyroxine 25 MCG TABLET PO SCH (06:27)
[2018-01-18 07:32] VITALS: BP 130/80
--- NOTE | 2018-01-18 09:36 | Internal Med Progress Note ---
<Suni Brooke - Last Filed: 01/18/18 09:35> Hospitalist Progress Note - Encounter Date of Encounter: 01/18/18 Time of Encounter: 09:20 - Subjective Interval History: Patient seen and examined. No acute events overnight. Patient is sitting comfortably in bed watching TV. Patient states he feels pretty good and that hes gotten much better over the weekend. He states hes pretty much back to normal and feels ready to go home. Denies any difficulty breathing and states cough is improved. Denies any fever/chills, nausea/vomiting. Denies flank pain, denies abdominal pain. Denies urinary symptoms and states making normal bowel movements. - Exam Vitals: Temp Pulse Resp BP Pulse Ox 97.9 F 85 17 130/80 96 01/18/18 07:29 01/18/18 07:29 01/18/18 07:29 01/18/18 07:29 01/18/18 07:29 Exam: General: Morbidly obese. Alert and oriented. No acute distress. Head: atraumatic, normocephalic. Eye: pupils equal, round, and reactive. Sclera anicteric. EOMI. ENT: Moist mucus membrane. Normal oropharynx. Neck: supple, trachea midline. Lungs: CTAB. No rhonchi, rales, or wheezes. No respiratory distress. No accessory muscle use. Cardiovascular: Normal S1 & S2. No rubs or gallops. No JVD. Pulse regular. Abdomen: Soft. Normal bowel sounds. Nondistended, no rigidity. Nontender. Extremities: Numerous cat scratches on lower extremities. No deformity, edema or tenderness, no joint swelling or clubbing. Skin: warm, dry, and intact. Neurological: CN II-XII intact. - Assessment and Plan (1) UTI (urinary tract infection) Current Visit: No Status: Acute (2) Acute renal insufficiency Current Visit: No Status: Inactive (3) Acute hyponatremia Current Visit: No Status: Inactive (4) Sepsis Current Visit: Yes Status: Inactive (5) History of constipation Current Visit: Yes Status: Acute (6) Heartburn symptom Current Visit: Yes Status: Acute (7) Nephrolithiasis, uric acid Current Visit: Yes Status: Acute (8) Community acquired pneumonia Current Visit: Yes Status: Acute (9) Acute hypoxemic respiratory failure Current Visit: Yes Status: Acute (10) Gout Current Visit: Yes Status: Acute (11) Morbid obesity with BMI of 50.0-59.9, adult Current Visit: Yes Status: Acute - Time Spent with Patient Total time spent is greater than 50% in coordination of care (as documented) at patient's floor/unit and/or counseling patient: Internal Medicine: Result - Labs CBC & Chem 7: 01/17/18 03:09 01/17/18 03:09 - Impressions Impressions Echocardiogram 01/17/18 13:06 Impressions: LVEF 65%. Normal LV chamber size, wall thickness and function. Normal right ventricular structure and function. No significant valvular dysfunction. Consult Discharge Plan - Plan Referrals: Marciruz Prieto [employer] [Primary Care Provider] - 01/21/18 10:00 am <Antonino Anderson - Last Filed: 01/18/18 12:57> Hospitalist Progress Note - Encounter Date of Encounter: 01/18/18 - Exam Vitals: Temp Pulse Resp BP Pulse Ox 97.9 F 85 17 130/80 96 01/18/18 07:29 01/18/18 07:29 01/18/18 07:29 01/18/18 07:29 01/18/18 07:29 - Assessment and Plan (1) Community acquired pneumonia Current Visit: Yes Status: Acute (2) UTI (urinary tract infection) Current Visit: No Status: Acute (3) Acute renal insufficiency Current Visit: No Status: Inactive (4) Acute hyponatremia Current Visit: No Status: Inactive (5) Sepsis Current Visit: Yes Status: Inactive (6) History of constipation Current Visit: Yes Status: Acute (7) Heartburn symptom Current Visit: Yes Status: Acute (8) Nephrolithiasis, uric acid Current Visit: Yes Status: Acute (9) Acute hypoxemic respiratory failure Current Visit: Yes Status: Acute (10) Gout Current Visit: Yes Status: Acute (11) Morbid obesity with BMI of 50.0-59.9, adult Current Visit: Yes Status: Acute - Time Spent with Patient Total time spent is greater than 50% in coordination of care (as documented) at patient's floor/unit and/or counseling patient: Internal Medicine: Result - Labs CBC & Chem 7: 01/17/18 03:09 01/17/18 03:09 - Impressions Impressions Echocardiogram 01/17/18 13:06 Impressions: LVEF 65%. Normal LV chamber size, wall thickness and function. Normal right ventricular structure and function. No significant valvular dysfunction. - Attending Attestation See my addendum on discharge summary <Suni Brooke - Last Filed: 01/18/18 09:35> (1) UTI (urinary tract infection) Qualifiers: Urinary tract infection type: site unspecified (8) Community acquired pneumonia Qualifiers: Laterality: right Lung location: lower lobe of lung Qualified Code(s): J18.1 - Lobar pneumonia, unspecified organism (10) Gout Qualifiers: Gout site: foot Gout etiology: drug-induced Chronicity: acute Laterality: left Qualified Code(s): M10.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 <Antonino Anderson - Last Filed: 01/18/18 12:57> (1) Community acquired pneumonia Qualifiers: Laterality: right Lung location: lower lobe of lung Qualified Code(s): J18.1 - Lobar pneumonia, unspecified organism (2) UTI (urinary tract infection) Qualifiers: Urinary tract infection type: site unspecified (10) Gout Qualifiers: Gout site: foot Gout etiology: drug-induced Chronicity: acute Laterality: left Qualified Code(s): M10.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
[2018-01-18] MEDS: ARIPiprazole 10 MG TABLET PO SCH (10:23)
[2018-01-18] MEDS: Lithium Carbonate 300 MG CAPSULE PO SCH (10:23)
[2018-01-18] MEDS: Aspirin 325 MG TABLET PO SCH (10:23)
[2018-01-18] MEDS: levoFLOXacin 750 MG TABLET PO SCH (10:23)
--- NOTE | 2018-01-18 13:35 | Discharge Summary ---
<Suni Brooke - Last Filed: 01/18/18 13:33> - NOTES TO OUTPATIENT PROVIDER Notes to Outpatient Provider: Patient needs followup CXR in 4 weeks. Patient needs outpatient sleep study. Orders not resulted at time of discharge: Pending orders 01/14/18 21:49 Culture,Blood [BC] Stat Date of Encounter: 01/18/18 Time of Encounter: 09:20 - Discharge Diagnosis (1) UTI (urinary tract infection) Priority: Primary Status: Acute Qualifiers: Urinary tract infection type: site unspecified Qualified Code(s): N39.0 - Urinary tract infection, site not specified; R31.9 - Hematuria, unspecified (2) Acute renal insufficiency Priority: Secondary Status: Inactive (3) Acute hyponatremia Priority: Secondary Status: Inactive (4) Sepsis Priority: Primary Status: Inactive Qualifiers: Qualified Code(s): A41.9 - Sepsis, unspecified organism (5) History of constipation Priority: Secondary Status: Acute (6) Heartburn symptom Priority: Secondary Status: Acute (7) Nephrolithiasis, uric acid Priority: Secondary Status: Acute (8) Community acquired pneumonia Priority: Primary Status: Acute Qualifiers: Laterality: right Lung location: lower lobe of lung Qualified Code(s): J18.1 - Lobar pneumonia, unspecified organism (9) Acute hypoxemic respiratory failure Priority: Secondary Status: Acute (10) Gout Priority: Secondary Status: Acute Qualifiers: Gout site: foot Gout etiology: drug-induced Chronicity: acute Laterality: left Qualified Code(s): M10.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 (11) Morbid obesity with BMI of 50.0-59.9, adult Priority: Secondary Status: Acute Hospital course: Mr. Moreno is a 47 year old male with past medical history of hypertension, depression, hypothyroidism, and uric acid nephrolithiasis who had recently undergone cystoscopy with left ureteral stent placement on 12/31/2017 in the setting of a previously identified 8 mm left ureteral stone on CT scan on 2017. His postoperative course was remarkable for febrile illness with a temperature of 102.8. Urine culture were positive for group B strep. Due to the patient's allergy to penicillin, he was placed on oral Bactrim DS twice daily and was discharged on 9/17/18. Patient reports the plan is to follow-up with urology for possible second procedure on January 19. Patient states he was doing fine until about last weekend when he began having left flank pain associated with nausea and vomiting. He states that Thursday was the last time he was able to eat anything. He also reports subjective fever and chills and was found to have a temperature of 101.2 documented at [facility] when he came in this evening. He was also found to be tachycardic with a heart rate in the 130s to 140s and his laboratory workup was significant for, hyponatremia with a sodium of 128, and mild BIRD (1.69). Lactic acid was normal. CT scan was not obtained as their scanner was down. Patient was subsequently transferred to [place] after aggressive fluid recent port having received 4 L of normal saline. His tachycardia did improve. Patient was started on levofloxacin based on previous sensitivities. A trial of vancomycin was started as well but patient developed redness at the site of infusion. CBC and CMP were unremarkable. Troponin was normal. CT abd/pelvis showed 8mm ureter stone with bilateral nonobstructing nephrolithiasis. Urology was consulted and recommended continuing IVF and antibiotics. Urology did not recommend stone extraction in setting of acute infection. Patient developed shortness of breath during hospital stay. Repeat CT abd/pelvis showed no change. CXR was negative. CT chest showed streaky bandlike opacities in right upper lobe and lower lobes, atelectasis vs infection. Echo was normal with LVEF 65%. He had a gout flareup in left foot, possibly secondary to Lasix. Uric acid was normal. Lasix was discontinued and gout pain resolved. Since admission, sepsis has resolved. Was weaned off oxygen nasal cannula to room air. Shortness of breath is resolved. BIRD was resolved. Blood cultures were no growth. Patient is scheduled for stone extraction as outpatient tomorrow. Today, patient is sitting comfortably in bed watching TV. Patient states he feels pretty good and that hes gotten much better over the weekend. He states hes pretty much back to normal and feels ready to go home. Denies any difficulty breathing and states cough is improved. Denies any fever/chills, nausea/vomiting. Denies flank pain, denies abdominal pain. Denies urinary symptoms and states making normal bowel movements. - Time Spent with Patient Total time spent providing and/or coordinating discharge services: Greater than 30 minutes (42 minutes) - Discharge Medications Prescriptions: levoFLOXacin [Levaquin] 750 mg PO DAILY #4 tablet Home Medications: Levothyroxine [Synthroid] 25 mcg PO 0630 03/11/16 [History] [place] Carbonate 900 mg PO DAILY 03/11/16 [History] Losartan Potassium [Cozaar] 50 mg PO DAILY 03/11/16 [History] Metoprolol [Lopressor] 25 mg PO DAILY 03/11/16 [History] risperiDONE [Risperidone] 1 mg PO HS 03/11/16 [History] Aripiprazole [Abilify] 30 mg PO DAILY 12/31/17 [History] Aspirin 325 mg PO DAILY 12/31/17 [History] Potassium Citrate [Urocit-K] 2 tab PO BID 01/01/18 [History] cloNIDine HCl [CloNIDine HCl] 0.1 mg PO DAILY 01/01/18 [History] Sulfamethoxazole/Trimeth DS [Bactrim Ds] 1 each PO BID #20 tablet 01/04/18 [Rx] levoFLOXacin [Levaquin] 750 mg PO DAILY #4 tablet 01/18/18 [Rx] Allergies/Adverse Reactions: 3 Allergy/AdvReac Type Severity Reaction Status Date / Time Beef Containing Products Allergy Swelling Verified 12/28/17 20:22 of Lip/Tongue/Throat Penicillins [PCN] Allergy Dizziness Verified 03/11/16 12:00 Date of admission: 01/13/18 15:09 Primary care physician: Maricruz Prieto CNP Consults: 01/12/18 23:36 Consult to Urology [CONS] Routine Consulting Provider: Urology [place] Reason for Consult: Nephrolithiasis s/p Left Ureteral stent with ongoing fever despite Abx (doxy) Call Completed: No Discharging clinician: Suni Brooke Anticipated date of discharge: 01/18/18 - Constitutional Vitals: Temp Pulse Resp BP Pulse Ox 97.9 F 85 17 130/80 96 01/18/18 07:29 01/18/18 07:29 01/18/18 07:29 01/18/18 07:29 01/18/18 07:29 Exam: General: Morbidly obese. Alert and oriented. No acute distress. Head: atraumatic, normocephalic. Eye: pupils equal, round, and reactive. Sclera anicteric. EOMI. ENT: Moist mucus membrane. Normal oropharynx. Neck: supple, trachea midline. Lungs: CTAB. No rhonchi, rales, or wheezes. No respiratory distress. No accessory muscle use. Cardiovascular: Normal S1 & S2. No rubs or gallops. No JVD. Pulse regular. Abdomen: Soft. Normal bowel sounds. Nondistended, no rigidity. Nontender. Extremities: Numerous cat scratches on lower extremities. No deformity, edema or tenderness, no joint swelling or clubbing. Skin: warm, dry, and intact. Neurological: CN II-XII intact. - Patient Status Disposition: Home, Self-Care Condition: Good - Discharge Instructions Instructions: Levofloxacin (By mouth), Kidney Stones (DC), Pneumonia (DC) Follow Up With: Maricruz Prieto CNP [Primary Care Provider] - 01/21/18 10:00 am - Diet and Activity Activity: increase activity as tolerated Diet: low fat, low cholesterol, low salt diet <Antonino Anderson - Last Filed: 01/18/18 15:24> Orders not resulted at time of discharge: Pending orders 01/14/18 21:49 Culture,Blood [] Stat Date of Encounter: 01/18/18 - Discharge Diagnosis (1) Community acquired pneumonia Status: Acute Qualifiers: Laterality: right Lung location: lower lobe of lung Qualified Code(s): J18.1 - Lobar pneumonia, unspecified organism (2) UTI (urinary tract infection) Status: Acute Qualifiers: Urinary tract infection type: site unspecified Qualified Code(s): N39.0 - Urinary tract infection, site not specified; R31.9 - Hematuria, unspecified (3) Acute renal insufficiency Status: Inactive (4) Acute hyponatremia Status: Inactive (5) Sepsis Status: Inactive Qualifiers: Qualified Code(s): A41.9 - Sepsis, unspecified organism (6) History of constipation Status: Acute (7) Heartburn symptom Status: Acute (8) Nephrolithiasis, uric acid Status: Acute (9) Acute hypoxemic respiratory failure Status: Acute (10) Gout Status: Acute Qualifiers: Gout site: foot Gout etiology: drug-induced Chronicity: acute Laterality: left Qualified Code(s): M10.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 (11) Morbid obesity with BMI of 50.0-59.9, adult Status: Acute Hospital course: Mr. Moreno is a 47 year old male - Time Spent with Patient Total time spent providing and/or coordinating discharge services: Date of admission: 01/13/18 15:09 Primary care physician: Maricruz Prieto CNP Consults: 01/12/18 23:36 Consult to Urology [CONS] Routine Consulting Provider: [facility] Reason for Consult: Nephrolithiasis s/p Left Ureteral stent with ongoing fever despite Abx (doxy) Call Completed: No - Constitutional Vitals: Temp Pulse Resp BP Pulse Ox 97.9 F 85 17 130/80 96 01/18/18 07:29 01/18/18 07:29 01/18/18 07:29 01/18/18 07:29 01/18/18 07:29 - Attending Attestation I performed an independent interview and exam of this patient. I agree with the findings, assessment, and plan of Dr. Brooke, internal medicine agriculture intern. Improved significantly. He will complete a ten-day course of Levaquin for community acquired pneumonia. He will follow-up with urology for his stone extraction. His diastolic CHF has resolved. He will continue on beta monique and Lasix. Patient otherwise is doing well and deemed stable for discharge. 38 minutes spent on discharge and coordination of care. We also recommend a follow-up chest x-ray in 4 weeks, as well as an outpatient sleep study. Gen NAD, AAAOx3 Skin warm and dry Lng CTAB Ht RRR abd soft +BS, NT Ext tr edema
== END 2018-01-18 17:17 | disposition home or self-care (01) | DRG 720 ==
LOC: 2NENU
PROVIDERS: ADMIT Internal Medicine; ATTEND Internal Medicine